=== PATIENT | female | born 1930 | race Caucasian/White ===

== ENCOUNTER 2017-04-25 14:09 | Emergency (ER) | payer MEDICARE ==
[2017-04-25] MEDS ORDERED: Piperacillin/Tazobactam 2.25 GM VIAL ONE (14:46)
[2017-04-25] MEDS ORDERED: Sodium Chloride 0.9% 100 ML ONE (14:47)
[2017-04-25 15:22] LABS: #Basophils 0.2 thou/uL (0.0-0.2); #Eosinphils 0.3 thou/uL (0.0-0.7); #Lymphocytes 2.6 thou/uL (1.20-3.40); #Monocytes 0.7 thou/uL (0.11-0.59); #Neutrophils 4.2 thou/uL (1.40-6.50); %Basophils 2.5 % (0.0-1.0); %Eosinophils 3.9 % (0.0-10.0); %Monocytes 8.4 % (0.0-10.0); Anisocytosis MODERATE=16-30 cells (100X) (0-5/hpf); Elliptocytes SLIGHT = 2-5 cells (100X) (0-1/hpf); Hematocrit 24.8 % (36.0-47.0); Howell Jolly Bodies SLIGHT = 1-2 cells (100X) (None Seen); Hypochromia SLIGHT = 6-15 cells (100X) (0-5/hpf); Macrocytosis SLIGHT = 6-15 cells (100X) (0-5/hpf); Mean Platelet Volume 8.9 fL (7.4-10.4); Microcytosis SLIGHT = 6-15 cells (100X) (0-5/hpf); Red Blood Cell (RBC) Count 2.55 mill/uL (4.20-5.40); Target Cells SLIGHT = 2-5 cells (100X) (0-1/hpf); Tear Drops SLIGHT = 2-5 cells (100X) (0-1/hpf)
--- NOTE | 2017-04-25 15:32 | RAD ---
THREE VIEWS RIGHT FOOT: Date: 04-25-17 History: Right second toe infection. Hammer toes, bilateral feet. FINDINGS: There is an avulsion fracture seen at the medial aspect base of the proximal phalanx middle toe, exac t age indeterminate, and on the oblique views appears to be corticated. This may represent a more rem ote avulsion injury. There is osteoarthritis involving the interphalangeal joints as well as the firs t metatarsal phalangeal joint. There is a questionable lucency within the distal cortex of the middle phalanx of the second toe and a subtle nondisplaced fracture cannot be entirely excluded. This may b e artifactual. Posterior and plantar calcaneal enthesophytes are present. No osseous destruction is i dentified. Lisfranc joint is normally aligned. Prominent vascular calcifications are present. IMPRESSION: 1. Scattered osteoarthritis involving the forefoot and to a lesser extent the midfoot. 2. Remote fracture base of the proximal phalanx middle toe. 3. Questionable fracture involving the middle phalanx of the second toe. 4. Subcutaneous soft tissue swelling of the second toe but no osseous destruction is appreciated. Toe s are held in flexion limiting evaluation. POS: [facility]
[2017-04-25 15:43] LABS: ALT (SGPT) 20 U/L (8-55); AST (SGOT) 39 U/L (5-34); Alkaline Phosphatase 78 U/L (40-150); Anion Gap 18 mmol/L (10-20); BUN (Urea Nitrogen) 29 mg/dL (9.8-20.1); Bilirubin, Total 0.2 mg/dL (0.2-1.2); Calc. Creatinine Clearance 0 mL/min (70-130); Calcium 9.6 mg/dL (7.8-10.44); Carbon Dioxide 21 mmol/L (23-31); Chloride 108 mmol/L (98-107); Estimated GFR-MDRD 50; Protein, Total 9.4 g/dL (6.0-8.3)
[2017-04-25 16:01] LABS: Lactic Acid - Sepsis 2.5 mmol/L (0.5-2.2)
[2017-04-25] MEDS ORDERED: Acetaminophen/Codeine 30-300mg Tablet ONE (17:01)
== END 2017-04-25 18:21 | disposition home or self-care (01) ==
LOC: SCSER 14:09
DX: L03.031 Cellulitis of right toe (principal); I10 Essential (primary) hypertension; D64.9 Anemia, unspecified; R73.03 Prediabetes; G30.9 Alzheimer's disease, unspecified; F02.80 Dementia in other diseases classified elsewhere, unspecified severity, without behavioral disturbance, psychotic disturbance, mood disturbance, and anxiety; Z79.84 Long term (current) use of oral hypoglycemic drugs; Z79.899 Other long term (current) drug therapy
CPT/HCPCS: 36415; 80053; 83605; 85025; 87040; 87070; 87077; 87186; 87205; 96365; 96367; J2543; J7050

== ENCOUNTER 2017-05-09 13:42 | Observation (INO) | payer MEDICARE ==
[2017-05-09 14:19] LABS: Hematocrit 28.6 % (36.0-47.0); Mean Platelet Volume 10.6 fL (7.4-10.4); Red Blood Cell (RBC) Count 2.85 mill/uL (4.20-5.40); White Blood Cell (WBC) Count 6.9 thou/uL (4.8-10.8)
[2017-05-09 14:43] LABS: Anisocytosis SLIGHT = 6-15 cells (100X) (0-5/hpf); Hypochromia SLIGHT = 6-15 cells (100X) (0-5/hpf); Neutrophil 71 % (42-75); Ovalocytes SLIGHT = 2-5 cells (100X) (0-1/hpf); Target Cells SLIGHT = 2-5 cells (100X) (0-1/hpf); Tear Drops SLIGHT = 2-5 cells (100X) (0-1/hpf)
[2017-05-09 14:48] LABS: Troponin I 0.013 ng/mL (< 0.028)
[2017-05-09 14:54] LABS: ALT (SGPT) 14 U/L (8-55); AST (SGOT) 24 U/L (5-34); Alkaline Phosphatase 64 U/L (40-150); Anion Gap 16 mmol/L (10-20); BUN (Urea Nitrogen) 39 mg/dL (9.8-20.1); Bilirubin, Total 0.3 mg/dL (0.2-1.2); Calc. Creatinine Clearance 0 mL/min (70-130); Calcium 9.8 mg/dL (7.8-10.44); Carbon Dioxide 16 mmol/L (23-31); Chloride 108 mmol/L (98-107); Estimated GFR-MDRD 40; Protein, Total 9.4 g/dL (6.0-8.3)
--- NOTE | 2017-05-09 15:07 | CT ---
CT HEAD WITHOUT IV CONTRAST: Date: 05/09/17 HISTORY: Altered mental status. Increased generalized weakness and fatigue. COMPARISON: 06/16/12. FINDINGS: Again noted is diminished attenuation of periventricular white matter, likely reflective of chronic s mall vessel ischemic changes which do appear slightly progressed when compared to the prior exam. The re is no evidence of an acute cortical infarction, hemorrhage, mass effect, or midline shift. Diffuse mild cerebral volume loss is again present. Ventricular system is normal in size, shape, and positio n for the degree of sulcal atrophy. There is a small low density focus seen in the left cerebellar hemisphere likely related to remote in farction. Visualized paranasal sinuses and mastoid air cells are clear. Opacification of the right ma xillary antrum and ethmoidal air cells noted on the prior study have resolved. IMPRESSION: 1. No acute intracranial abnormality is demonstrated. 2. Chronic small vessel ischemic changes with cerebral volume loss. 3. Remote infarction left cerebellar hemisphere. POS: [facility]
--- NOTE | 2017-05-09 15:12 | RAD ---
SINGLE VIEW OF CHEST: Date: 05/09/17 COMPARISON: 06/08/16. HISTORY: Syncope. FINDINGS: Single view of the chest shows an enlarged but stable cardiomediastinal silhouette with atherosclerot ic calcifications in the aorta. There are bilateral veil-like opacities which may represent layering pleural effusions. Degenerative changes are seen in the spine. IMPRESSION: Cardiomegaly with possible small bilateral pleural effusions. POS: [facility]
[2017-05-09 16:45] LABS: Bilirubin Negative (Negative); Blood, Urine Negative (Negative); Glucose, Urine (Dipstick) Negative (Negative); Ketone, Urine Negative (Negative); Nitrite Negative (Negative); Protein, Urine (Dipstick) Negative (Neg-Trace); Urobilinogen 0.2 mg/dL (0.2-1.0)
[2017-05-09 17:39] LABS: Troponin I Less than 0.010 ng/mL (< 0.028)
[2017-05-09] MEDS ORDERED: Acetaminophen 325 MG TAB PO PRN (18:39)
[2017-05-09] MEDS ORDERED: Sodium Chloride 0.9% 1,000 ML IV SCH ×2 (18:39→20:00)
[2017-05-09] MEDS ORDERED: Ondansetron ODT 4 MG TAB SL PRN (18:39)
[2017-05-09] MEDS ORDERED: Ondansetron HCl/PF 4 MG/2 ML Vial IVP PRN ×2 (18:39→19:58)
[2017-05-09] MEDS ORDERED: Ondansetron ODT 4 MG TAB PO PRN (19:58)
[2017-05-09] MEDS ORDERED: Acetaminophen 500 MG TAB PO PRN (19:58)
[2017-05-09] MEDS ORDERED: HumaLOG 300 UNITS/3 ML VIAL SC PRN ×2 (19:58)
[2017-05-09] MEDS ORDERED: Dextrose 5% in Water 1,000 ML IV PRN (19:58)
[2017-05-09] MEDS ORDERED: cloNIDine 0.1 MG TAB PO PRN (19:58)
[2017-05-09] MEDS ORDERED: hydrALAZINE 20 MG/ML VIAL SLOW IVP PRN (19:58)
[2017-05-09] MEDS ORDERED: Dextrose 50% Abboject 50 ML SYRINGE SLOW IVP PRN (19:58)
[2017-05-09] MEDS ORDERED: Sodium Chloride 0.9% 10 ML ONE (21:15)
--- NOTE | 2017-05-10 03:20 | HP ---
DATE OF ADMISSION: 05/09/2017 PRIMARY CARE PROVIDER: Dr. Cain. CHIEF COMPLAINT: Passing out. HISTORY OF PRESENT ILLNESS: This is an 86-year-old female who presents to [facility] accompanied by multiple family members and a daughter who provides the entire histo ry, as patient has severe dementia and unable to coherently carry on a conversation. According to th e daughter, patient was giving her mother a bath at home while patient was seated on a shower bench. The patient apparently slumped over "needle like" and apparently was unresponsive to voice or tactil e stimulation. The daughter reports the patient with limp for approximately 5 minutes, at which poin t, EMS was notified. The patient apparently had regained normal consciousness and was acting normall y by EMS arrival. The patient has had multiple evaluations and ER evaluations for altered mentation, general weakness, and similar type complaints in the past. Patient apparently had not been unrespon sive for this length of time according to the daughter. No specific change to her chronic medication regimen, however, has been treated with an antibiotic for suspected toe infection over the last week and a half including ciprofloxacin and Bactrim. The patient has had no specific vaccine exposure, t ravel history, or sick contacts. Patient requires assistance with all activities of daily living inc luding bathing, feeding, transfers, and self-care. Patient has severe dementia as stated previously living with her family and daughters. No specific history of recent fall, facial asymmetry or unilat eral weakness. No nausea, vomiting, or diarrhea noted. In the emergency room, the patient underwent general evaluation including CT imaging of the brain showing no acute intracranial process. Chronic ischemic white matter changes noted. Remote infarction of the left cerebellar hemisphere noted. [facility] metabolic survey showed evidence of chronic anemia as well as questionable acute kidney injur y in the context of known chronic kidney disease, stage 3. [facility]. PAST MEDICAL HISTORY: 1. Diabetes mellitus, type 2. 2. Hypertension. 3. History of general weakness and altered mental status. 4. Advanced Alzheimer dementia. 5. History of basal-cell carcinoma of the skin. 6. History of hammertoes, bilateral feet. 7. Deconditioning. PAST SURGICAL HISTORY: 1. Status post basal cell skin excision. 2. Status post left thyroid lobectomy in 2009. 3. Status post left knee repair. 4. Status post hysterectomy. 5. Status post bilateral hammertoe correction. CURRENT MEDICATIONS: 1. Amitriptyline 25 mg 1 tab p.o. daily. 2. Donepezil 10 mg 1 tab p.o. daily. 3. Memantine 10 mg p.o. b.i.d. 4. Naproxen 500 mg 1 tab p.o. b.i.d. 5. Losartan 100 mg 1 tab p.o. b.i.d. 6. Vitamin B6 of 100 mg p.o. daily. ALLERGIES: No known drug allergies. FAMILY HISTORY: Positive for hypertension. SOCIAL HISTORY: Patient resides with her daughter in [place], [place]. No current alcohol, tobacco, or illicit drug use. Requires assistance with all activities of daily living. Rolling walker for am bulation with standby assistance. REVIEW OF SYSTEMS: The following complete review of systems was otherwise negative, except as stated per HPI: Constitutional: Weight loss or gain, ability to conduct usual activities. Skin: Rash, itching. Eyes: Double vision, pain. ENT/Mouth: Nose bleeding, neck stiffness, pain, tenderness. Cardiovascular: Palpitations, dyspnea on exertion, orthopnea. Respiratory: Shortness of breath, wheezing, cough, hemoptysis, fever, or night sweats. Gastrointestinal: Poor appetite, abdominal pain, heartburn, nausea, vomiting, constipation, or diarr hea. Genitourinary: Urgency, frequency, dysuria, nocturia. Musculoskeletal: Pain, swelling. Neurologic/Psychiatric: Anxiety, depression. Allergy/Immunologic: Skin rash, bleeding tendency. PHYSICAL EXAMINATION: VITAL SIGNS: On admission blood pressure 145/62, pulse 77, respiratory rate 20, temperature is 98 de grees Fahrenheit, O2 saturation 99% on room air. GENERAL APPEARANCE: This is an 86-year-old female, alert and oriented x1 to person, sittin g on a bedside commode. HEENT: Pupils are equal, round, and reactive to light and accommodation. Extraocular muscles are in tact. No scleral icterus, no conjunctival injection. Nares patent. OP is clear. Oral mucosa dry a ppearing. NECK: Supple, no cervical adenopathy, no thyromegaly, no carotid bruits, no JVD appreciated. Cervic al spine with full active and passive range of motion. No meningeal signs appreciated. CHEST: Lungs are clear to auscultation bilaterally. CARDIOVASCULAR: S1, S2, without noted murmur. ABDOMEN: Rounded, soft, nontender, nondistended. Bowel sounds are positive in all four quadrants. No hepatosplenomegaly, no abdominal bruits, no rebound or guarding appreciated. EXTREMITIES: Warm and dry with fair turgor. No clubbing, cyanosis, or asymmetric edema appreciated. Pulses palpable distally at the dorsalis pedis, posterior tibial, and popliteal arteries bilaterall y. Capillary refill less than 2 seconds. Right foot with second toe consistent with hammer toe with dry crusting area at the distal phalanx. Mild erythema of the toe. No drainage noted. Chronic juliocesar earing. NEUROLOGIC: Cranial nerves II-XII are grossly intact. Alert and oriented x1 to person. Patient not observed ambulatory. PERTINENT LABORATORY AND X-RAY FINDINGS: Sodium 135, potassium 4.8, chloride 108, CO2 of 16, BUN 39, creatinine 1.27, estimated GFR of 40, glucose 137, calcium is 9.8. LFTs within normal limits. Trop onin I negative x2. Albumin 3.4. CBC showed a white blood cell count of 6.9, hemoglobin 8.9, hemato crit 29, MCV 100, platelet count 254 with 71% neutrophils. Urinalysis negative. Urine specific grav ity is 1.021. CT of the brain without contrast dated 05/09/2017 showed chronic ischemic white matter changes. Remote infarct in the left cerebellar hemisphere. No acute process identified. Portable chest x-ray shows cardiomegaly without acute infiltrate. EKG dated 05/09/2017 by my interpretation s hows a sinus mechanism with heart rate in the 80s. Normal R-wave progression noted in the precordial leads. Normal axis. ST changes noted in leads V4 through V6. ASSESSMENT AND PLAN: 1. Syncope. Etiology unclear. Questionable volume depletion. Continue intravenous normal saline a t 75 mL per hour. We will check orthostatic vital signs q.3 hours x2. Check carotid Doppler study t o rule out focal stenosis. Check 2D transthoracic echocardiogram to assess ejection fraction and denisse vular function. Continue telemetry monitoring to rule out acute arrhythmia. 2. Acute kidney injury on chronic kidney disease, stage 3. Continue intravenous normal saline as st ated previously. Avoid nephrotoxic agents and contrast media. Repeat creatinine in the a.m. 3. Metabolic acidosis. Questionable acute/subacute. Continue intravenous fluids as outlined previo usly. Repeat CO2 level in the a.m. 4. Chronic macrocytic anemia. No current evidence to suggest acute blood loss. Repeat CBC in the a .m. Review of the medical records shows anemia with similar values dating to 2012. 5. Advanced dementia, Alzheimer's type. Continue supportive measures. Family to attend patient jourdan pyle in the hospital. Continue memantine 10 mg p.o. b.i.d. 6. Prophylaxis. Sequential compression devices while in bed. Pepcid 20 mg p.o. b.i.d. General fal l precautions. 7. Code status is FULL. Surrogate medical decision maker is patient's daughter.
[2017-05-10 06:46] LABS: Anion Gap 14 mmol/L (10-20); BUN (Urea Nitrogen) 39 mg/dL (9.8-20.1); Calc. Creatinine Clearance 38 mL/min (70-130); Carbon Dioxide 18 mmol/L (23-31); Chloride 111 mmol/L (98-107); Estimated GFR-MDRD 47
[2017-05-10 07:02] LABS: Hematocrit 24.5 % (36.0-47.0); Mean Platelet Volume 11.1 fL (7.4-10.4); White Blood Cell (WBC) Count 6.4 thou/uL (4.8-10.8)
[2017-05-10] MEDS ORDERED: Famotidine 20 MG TAB PO SCH (09:00)
--- NOTE | 2017-05-10 09:07 | ULT ---
CAROTID DUPLEX ULTRASOUND: INDICATION: Syncope. COMPARISON: None. FINDINGS: There is prominent calcified atherosclerotic plaque involving the proximal right internal carotid art tirso. There is mild partially calcified atherosclerotic plaque involving the distal left common carot id artery. Peak systolic velocity right CCA was 83.6 cm/s and the left CCA was 70.9 cm/s. The peak systolic velocity within the right ICA was 78.9 cm/s and the left was 9.2 cm/s. Right IC:CC ratio is 0.94 and the left is 1.27. Antegrade flow is seen within both vertebral arteries. IMPRESSION: 1. Moderate partially calcified atherosclerotic plaque involving the proximal right internal carotid artery without evidence of hemodynamically significant stenosis. 2. No evidence of hemodynamically significant stenosis involving the left internal carotid artery. 3. Antegrade flow within both vertebral arteries. POS: [facility]
[2017-05-10 09:34] LABS: Band 7 % (5-11); Hypochromia SLIGHT = 6-15 cells (100X) (0-5/hpf); Neutrophil 32 % (42-75); Polychromasia SLIGHT = 2-3 cells (100X) (0-2/hpf)
[2017-05-10 10:48] VITALS: BP 148/67; TEMP 97.6
[2017-05-10 11:03] VITALS: BMI 23.1
--- NOTE | 2017-05-10 13:16 | DIS ---
DATE OF ADMISSION: 05/09/2017 DATE OF DISCHARGE: 05/10/2017 DISCHARGE DIAGNOSES: 1. Status post syncopal episode likely secondary to dehydration. 2. Dehydration, improved. 3. Acute kidney injury on chronic kidney disease stage 3. 4. Chronic normocytic anemia, stable. 5. Hypertension. 6. Alzheimer's dementia, advanced. CONSULTATIONS: None. PERTINENT LABORATORY DATA AND X-RAY FINDINGS: Creatinine ranged between 1.09-1.27, estimated GFR ran ging between 40-47. LFTs within normal limits. Troponin I negative x2. Albumin 3.4. CBC showed a hemoglobin ranging between 7.7-8.9. Urinalysis negative 05/09/2017. CT of the brain without contras t dated 05/09/2017 showed no acute intracranial process. Chronic ischemic small vessel changes noted . Portable chest x-ray dated 05/09/2017 showed cardiomegaly without acute process. Carotid Doppler study dated 05/10/2017 showed moderate atherosclerotic plaque in the right internal carotid artery wi thout hemodynamically significant stenosis. A 2D transthoracic echocardiogram 05/10/2017 pending at the time of this dictation. HOSPITAL COURSE: Patient was observed on the telemetry unit after initially presenting status post s yncopal episode. The patient underwent general assessment including orthostatic vital signs showing no evidence of acute orthostasis. Due to patient's instability with gait and Alzheimer dementia obta ining accurate orthostatic vital signs was limited. The patient was noted with mild acute kidney inj ury in the context of known chronic kidney disease stage 3, receiving IV fluids throughout her hospit al course. Likely multifactorial process including decreased p.o. intake as well as iatrogenic influ ence with the ongoing use of losartan and naproxen. Current recommendations are to discontinue the n aproxen and increased free water intake. Overall, the patient remained clinically stable throughout the hospital course with telemetry monitoring showing sinus mechanism with occasional sinus arrhythmi a with occasional premature atrial contractions. Overall, patient is clinically stable and at [facility] functional status ready for discharge 05/10/2017. DISCHARGE MEDICATIONS: 1. Amitriptyline 25 mg p.o. at bedtime. 2. Ciprofloxacin 375 mg p.o. b.i.d. 3. Aricept 10 mg p.o. at bedtime. 4. Losartan 100 mg p.o. at bedtime. 5. Namenda 10 mg p.o. b.i.d. 6. Vitamin B6 100 mg p.o. daily. FOLLOWUP: Patient will follow up with her primary care provider, Dr. Cain within 7 days of discha rge. CONDITION ON DISCHARGE: Stable. ACTIVITY: Ad martínez. Rolling walker with standby assistance and fall risk precautions. DIET: Regular. CODE STATUS: FULL. DISPOSITION: Home, 05/10/2017.
== END 2017-05-10 16:10 | disposition home or self-care (01) ==
LOC: ERS 13:42 → ERHOLD 15:11 → 2NO 18:29
PROVIDERS: ADMIT Family Medicine; ATTEND Family Medicine
DX: R55 Syncope and collapse (principal); E86.0 Dehydration; E11.22 Type 2 diabetes mellitus with diabetic chronic kidney disease; I12.9 Hypertensive chronic kidney disease with stage 1 through stage 4 chronic kidney disease, or unspecified chronic kidney disease; N18.3 Chronic kidney disease, stage 3 (moderate); N17.9 Acute kidney failure, unspecified; D64.9 Anemia, unspecified; G30.9 Alzheimer's disease, unspecified; F02.80 Dementia in other diseases classified elsewhere, unspecified severity, without behavioral disturbance, psychotic disturbance, mood disturbance, and anxiety; R26.9 Unspecified abnormalities of gait and mobility; R53.81 Other malaise; E87.2 Acidosis; Z79.2 Long term (current) use of antibiotics; Z79.899 Other long term (current) drug therapy; Z88.5 Allergy status to narcotic agent; Z90.710 Acquired absence of both cervix and uterus; Z90.89 Acquired absence of other organs; Z98.890 Other specified postprocedural states
CPT/HCPCS: 70450; 71010; 80048; 80053; 81003; 82553; 82962 ×2; 84484 ×2; 85007; 85025; 85027; 93005; 93880; 96360; 96361; 97139; 99285; G0378; 36415; 36416; A4216

== ENCOUNTER 2017-08-29 17:35 | Inpatient (IN) | payer MEDICARE ==
[2017-08-29 18:37] LABS: #Basophils 0.2 thou/uL (0.0-0.2); #Eosinphils 0.2 thou/uL (0.0-0.7); #Lymphocytes 3.2 thou/uL (1.20-3.40); #Monocytes 0.8 thou/uL (0.11-0.59); #Neutrophils 5.5 thou/uL (1.40-6.50); %Basophils 1.7 % (0.0-1.0); %Eosinophils 1.8 % (0.0-10.0); %Lymphocytes 32.1 % (21.0-51.0); %Monocytes 8.4 % (0.0-10.0); Anisocytosis MODERATE=16-30 cells (100X) (0-5/hpf); Elliptocytes SLIGHT = 2-5 cells (100X) (0-1/hpf); Hemoglobin 6.5 g/dL (12.0-16.0); Hypochromia SLIGHT = 6-15 cells (100X) (0-5/hpf); MDiff Complete? YES; Mean Corpuscular HGB CONC 30.8 g/dL (32.0-36.0); Mean Corpuscular Hemoglobin 28.6 pg (27.0-31.0); Mean Corpuscular Volume 92.8 fl (81.0-99.0); Mean Platelet Volume 9.8 fL (7.4-10.4); PLT Morphology Comment Appears Adequate; Platelet Count 211 thou/uL (130-400); RBC Distribution Width 25.2 % (11.5-14.5); Red Blood Cell (RBC) Count 2.29 mill/uL (4.20-5.40); Target Cells SLIGHT = 2-5 cells (100X) (0-1/hpf); White Blood Cell (WBC) Count 9.9 thou/uL (4.8-10.8)
[2017-08-29] MEDS ORDERED: Clindamycin/D5W 900 mg/50 ml Premix Bag ONE (18:53)
[2017-08-29 19:24] LABS: Anion Gap 18 mmol/L (10-20); BUN (Urea Nitrogen) 30 mg/dL (9.8-20.1); Calc. Creatinine Clearance 0 mL/min (70-130); Calcium 9.4 mg/dL (7.8-10.44); Carbon Dioxide 23 mmol/L (23-31); Chloride 103 mmol/L (98-107); Estimated GFR-MDRD 36; Glucose 168 mg/dL (83-110); Potassium 4.6 mmol/L (3.5-5.1); Sodium 139 mmol/L (136-145)
--- NOTE | 2017-08-29 19:58 | RAD ---
LEFT FOOT THREE VIEWS: HISTORY: An 86-year-old female with a history of pain. History of poor circulation in the extremities, needin g stents, COMPARISON: 07/21/2008 FINDINGS: There is some artifact within the material overlying the midfoot and hindfoot. There is significant motion artifact. There is prominent vascular calcification. No overt acute fracture. Old deformity of the distal fifth metatarsal. IMPRESSION: Suboptimal examination because of overlying artifact and motion artifact. No overt acute process. POS: [facility]
--- NOTE | 2017-08-29 20:02 | RAD ---
RIGHT FOOT THREE VIEWS: HISTORY: An 86-year-old female with a history of right foot pain. FINDINGS: There is artifact overlying the hindfoot and ankle. Significant degenerative changes and vascular ca lcifications. Probable skin ulcer in the medial soft tissues, medial to the first metatarsophalangea l joint. IMPRESSION: Motion artifact. Artifact and material overlying the hindfoot and ankle. Probable medial skin ulcer or defect at the level of the first metatarsophalangeal joint. No fracture or dislocation in the me dial soft tissues, adjacent to the medial aspect of the first metatarsophalangeal joint. POS: [facility]
[2017-08-29 21:37] VITALS: BMI 24.2
[2017-08-29] MEDS ORDERED: Amitriptyline HCl 25 MG TAB PO SCH (23:45)
[2017-08-29] MEDS ORDERED: Losartan 25 MG TAB PO SCH (23:45)
[2017-08-29] MEDS ORDERED: Donepezil HCl 10 MG TAB PO SCH (23:45)
[2017-08-29] MEDS ORDERED: Ascorbic Acid 500 mg Chewable Tablet PO SCH (23:45)
[2017-08-30] MEDS ORDERED: Clindamycin/D5W 900 MG in Premix Bag 1 BAG IVPB SCH (02:00)
[2017-08-30] MEDS ORDERED: Ondansetron ODT 4 MG TAB PO PRN (04:10)
[2017-08-30] MEDS ORDERED: Ondansetron HCl/PF 4 MG/2 ML Vial IVP PRN (04:10)
[2017-08-30] MEDS ORDERED: Acetaminophen 325 MG TAB PO PRN (04:10)
[2017-08-30] MEDS ORDERED: Dextrose 50% Abboject 50 ML SYRINGE SLOW IVP PRN (04:10)
[2017-08-30] MEDS ORDERED: HYDROcodone/Acetaminophen 5/325 mg Tablet PO PRN (04:10)
[2017-08-30] MEDS ORDERED: Dextrose 5% in Water 1,000 ML IV PRN (04:10)
--- NOTE | 2017-08-30 05:07 | HP ---
DATE OF ADMISSION: 08/30/2017 TIME OF SERVICE: 0315 CHIEF COMPLAINT: Pain and bilateral foot wounds. HISTORY OF PRESENT ILLNESS: Ms. Clancy is an 86-year-old white female with a history of Alzheimer' s type dementia, fairly advanced, peripheral vascular disease, borderline diabetes and hypertension. The patient lives at home with her daughter. She has had multiple areas on both of her feet of chron ic appearing arterial insufficiency ulcers with chronic open wounds. [facility] She saw Dr. Kwan a week or two ago over at the [facility] and he is supposed to see them next Tuesday for peripheral vascular disease arteriography and stenting. The patient has a history of Alzheimer's, unable to contribute to the history. She has been getting wound care for some time, but when nurses were working on her right foot, the patient withdrew in robby n which she does not normally do. There was some increased redness and swelling with increased heat to the bilateral feet and so they brought her to the emergency department for evaluation. Of note, she was [facility] the [facility]. She was put on antibiotics with Keflex a couple of weeks ago for a 7-day course, but did not seem to really make a difference. The patient has not had any fevers here. No nausea, vomiting, no diarrhea or constipation. She is n ot complaining herself, but more based on how she responds to stimuli. In the emergency department, she was seen in [facility]. Labs were obtained. She was giv en clindamycin and sent here for further workup and evaluation. She was initially accepted by Dr. Shauna morris during swing shift and it was left to me to admit. She has been sleeping well. No other complaints. No events since arrival. PAST MEDICAL HISTORY: 1. Alzheimer's type dementia. 2. Borderline diabetes. 3. Hypertension. 4. Peripheral vascular disease. 5. Chronic bilateral foot ulcers, ischemic. PAST SURGICAL HISTORY: 1. Left knee replacement. 2. Skin cancer removed from her nose. 3. Bilateral foot hammertoe correction. 4. Hysterectomy, ovary status unknown. HOME MEDICATIONS: 1. Donepezil 10 mg p.o. at bedtime. 2. Losartan 100 mg p.o. daily 3. Metformin 500 mg p.o. b.i.d. 4. Amitriptyline 25 mg p.o. at bedtime. 5. Namenda 10 mg p.o. b.i.d. 6. Slow iron 447.5 mg daily. 7. Folic acid daily. 8. B12 daily. 9. Aspirin 81 mg daily. 10. Calcium 500 mg plus D daily. 11. Centrum Silver 1 tablet daily. 12. B6 100 mcg daily. ALLERGIES: TRAMADOL makes her goofy. FAMILY HISTORY: Negative for clotting or bleed disorder, no immune dysfunction known. SOCIAL HISTORY: Negative for habits x3. She lives at home with her daughter who cares for her prima marcelle. REVIEW OF SYSTEMS: A 10 point review of systems is not obtainable due to patient's advanced dementia . CODE STATUS: I discussed code status with the daughter and she is not sure what decision she wants t o make at this time. PHYSICAL EXAMINATION: VITAL SIGNS: Temperature is 97.5, pulse 100, blood pressure 174/84, respiratory 18, O2 sat 96% on ro om air. GENERAL: She is sleeping, but arousable. She mumbles incoherently and does not attempt to answer qu estions. She does not really follow directions. She looks to be in no acute distress. HEENT: Normocephalic, atraumatic. Pupils equal, round, reactive to light bilaterally, mucous membra umm are moist. She has no visible lesions. No thrush. NECK: Supple, without lymphadenopathy, JVD, or thyromegaly. She has normal carotid upstrokes. I do not appreciate bruits. LUNGS: Clear with good air movement. She has no wheezes, no rales, no rhonchi. CARDIOVASCULAR: She has a normal S1, S2. She has a regular rhythm and tachycardic. She has no callie ble murmurs. ABDOMEN: Soft, is nontender, nondistended. She has good bowel sounds in all 4 quadrants. There is no involuntary guarding or rebound. EXTREMITIES: No cyanosis, no clubbing. She has got no edema. She has got multiple ulcerations with a sharp demarcation and tissue loss present with bilateral feet. There is increased erythema around the right foot wounds and a softer digit of the right fourth toe. There is slight increased heat and a rapid capillary refill. There is slight edema distally. SKIN: Otherwise, warm, moist and well perfused. NEUROLOGIC: Not testable. She does move all 4 extremities and withdraws to painful stimuli. Crania l nerves appear to be intact. MUSCULOSKELETAL: Otherwise shows large joint to be uninflamed. She does have decent range of motion . There is no palpable effusions. LABORATORY DATA: Sodium 139, potassium 4.6, chloride 103, bicarb 23, BUN 30 and creatinine 1.37, glu cose 168, calcium 9.4. C-reactive protein was at 5.04 and sed rate was not done. CBC showed a white count of 9.9, hemoglobin is 6.5, hematocrit of 21.2 and platelet count of 211,000. Of note, her last hemoglobin in our system done on 08/03/2017 showed hemoglobin 7.6, on 07/27/2017 it was 7.8. She has been hovering in the mid 8s up to 8.9 on 05/09/2017, and down in the 7, now 6. She does have a normal MCV at 92.8 and does have a normal MCH of 28.6 with a slightly low, MCHC at 30 .8 very high RDW 25.2%. RADIOGRAPHIC STUDIES: She had bilateral foot x-ray done on 08/29/2017 that shows some soft tissue sw elling and some tissue loss over the ulcerations. There is no fracture or dislocation. There is no air in the tissues. ASSESSMENT AND PLAN: 1. Ischemic ulcer of the bilateral feet. 2. Peripheral vascular disease. 3. Advanced Alzheimer's type dementia. 4. Borderline diabetes, hyperglycemia. 5. Essential hypertension. 6. "Prediabetes", but on metformin. We will start her on Ancef 2 grams IVq,8 hours and will adjust the dose for her kidney function. At this point, she does appear to have some chronic kidney disease stage 3. I think that likely she nee ds to remain on antibiotics prophylactically until she has her procedure. She is not septic, but messina s have increased discomfort. There is nothing surgically to do as she does not have the blood flow t o correct this. She has already had initial evaluation and plans for intervention by Dr. Ede Kwan to be done next Tuesday and I think at this point would focus on pain control, continuing prophylact ic antibiotics and getting her to appointment. If she remains stable and her blood counts remain stable, I think later she will be discharged today. Anemia of chronic disease, likely some degree of iron deficiency. She already had a unit of blood si nce she has been here. We will recheck her counts now. We will transfuse to keep her above 8 for goncalves re. This will enhance oxygen delivery to her tissues, especially with severe PVD. We cannot check a n iron level at this point, she just had a unit of blood. We will continue Slow-iron daily. May wan t to consider increasing to twice a day.
[2017-08-30] MEDS: Sodium Chloride 0.9% 1,000 ML IV SCH ×3 (05:41→23:30)
[2017-08-30] MEDS: CEFAZOLIN/Water 2 GM/20 ML SYRINGE SLOW IVP SCH ×3 (05:43→20:37)
[2017-08-30 05:59] LABS: Anion Gap 13 mmol/L (10-20); BUN (Urea Nitrogen) 26 mg/dL (9.8-20.1); Calc. Creatinine Clearance 37 mL/min (70-130); Calcium 9.2 mg/dL (7.8-10.44); Carbon Dioxide 24 mmol/L (23-31); Chloride 104 mmol/L (98-107); Estimated GFR-MDRD 44; Glucose 108 mg/dL (83-110); Potassium 4.3 mmol/L (3.5-5.1); Sodium 137 mmol/L (136-145)
[2017-08-30 06:43] LABS: Band 8 % (5-11); Eosinophils 2 % (0-10); Hemoglobin 8.4 g/dL (12.0-16.0); Lymphocytes 29 % (21-51); MDiff Complete? YES; Mean Corpuscular HGB CONC 32.1 g/dL (32.0-36.0); Mean Corpuscular Hemoglobin 30.9 pg (27.0-31.0); Mean Corpuscular Volume 96.2 fl (81.0-99.0); Mean Platelet Volume 10.9 fL (7.4-10.4); Monocytes 7 % (0-10); Neutrophil 54 % (42-75); Platelet Count 211 thou/uL (130-400); RBC Distribution Width 24.2 % (11.5-14.5); Red Blood Cell (RBC) Count 2.72 mill/uL (4.20-5.40); White Blood Cell (WBC) Count 8.1 thou/uL (4.8-10.8)
[2017-08-30] MEDS: Acetaminophen 500 MG TAB PO SCH ×2 (08:26→20:37)
[2017-08-30] MEDS: metFORMIN XR 500 MG TAB PO SCH (08:27)
[2017-08-30] MEDS: Famotidine 20 MG TAB PO SCH (09:09)
[2017-08-30] MEDS: HumaLOG 300 UNITS/3 ML VIAL SC PRN (17:49)
[2017-08-30] MEDS ORDERED: Losartan 25 MG TAB PO SCH (21:00)
[2017-08-30] MEDS ORDERED: Donepezil HCl 10 MG TAB PO SCH (21:00)
[2017-08-30] MEDS ORDERED: Amitriptyline HCl 25 MG TAB PO SCH (21:00)
[2017-08-30] MEDS ORDERED: Ascorbic Acid 500 mg Chewable Tablet PO SCH (21:00)
[2017-08-31] MEDS: CEFAZOLIN/Water 2 GM/20 ML SYRINGE SLOW IVP SCH ×2 (04:26→12:55)
[2017-08-31 05:03] LABS: Anion Gap 15 mmol/L (10-20); BUN (Urea Nitrogen) 21 mg/dL (9.8-20.1); Calc. Creatinine Clearance 33 mL/min (70-130); Calcium 8.9 mg/dL (7.8-10.44); Carbon Dioxide 22 mmol/L (23-31); Chloride 105 mmol/L (98-107); Estimated GFR-MDRD 39; Glucose 171 mg/dL (83-110); Potassium 4.4 mmol/L (3.5-5.1); Sodium 138 mmol/L (136-145)
[2017-08-31 05:20] LABS: Band 7 % (5-11); Eosinophils 2 % (0-10); Hemoglobin 8.4 g/dL (12.0-16.0); Lymphocytes 13 % (21-51); MDiff Complete? YES; Mean Corpuscular Hemoglobin 30.2 pg (27.0-31.0); Mean Corpuscular Volume 94.1 fl (81.0-99.0); Mean Platelet Volume 10.2 fL (7.4-10.4); Monocytes 4 % (0-10); Neutrophil 74 % (42-75); Platelet Count 215 thou/uL (130-400); RBC Distribution Width 23.8 % (11.5-14.5); White Blood Cell (WBC) Count 9.5 thou/uL (4.8-10.8)
[2017-08-31] MEDS: metFORMIN XR 500 MG TAB PO SCH (08:02)
[2017-08-31] MEDS: Acetaminophen 500 MG TAB PO SCH (08:02)
[2017-08-31] MEDS: Famotidine 20 MG TAB PO SCH (08:02)
[2017-08-31] MEDS ORDERED: Sodium Chloride 0.9% 500 ML IV SCH (08:30)
[2017-08-31] MEDS: Sodium Chloride 0.9% 1,000 ML IV SCH (11:14)
[2017-08-31] MEDS ORDERED: Metoprolol Tartrate 25 MG TAB PO SCH ×2 (11:15→21:00)
--- NOTE | 2017-08-31 13:29 | PDOC.PN ---
- Subjective Encounter Start Date: 08/31/17 Encounter Start Time: 13:35 Subjective: Patient less alert today and not eating breakfast -: Able to respond occasionally to commands -: No acute events overnight. - Objective MAR Reviewed: Yes Vital Signs & Weight: Vital Signs (12 hours) Temp Pulse Resp BP BP Pulse Ox 08/31/17 11:56 98.0 F 87 18 122/73 93 L 08/31/17 08:51 107 H 154/81 H 08/31/17 08:00 98.8 F 107 H 16 08/31/17 07:14 98.8 F 110 H 16 165/82 H 97 Weight Admit Weight 154 lb 8 oz Weight 154 lb 8 oz I&O: 08/30/17 08/31/17 09/01/17 06:59 06:59 06:59 Intake Total 725 4280 1000 Balance 725 4280 1000 Result Diagrams: 08/31/17 04:35 08/31/17 04:35 Additional Labs: Accuchecks 08/31/17 08/31/17 08/30/17 11:59 04:35 19:44 POC Glucose 231 H 195 H 213 H 08/30/17 16:45 POC Glucose 165 H Phys Exam - Physical Examination Constitutional: NAD HEENT: PERRLA, moist MMs, sclera anicteric Neck: no JVD, supple, full ROM Respiratory: no wheezing, no rales, no rhonchi, clear to auscultation bilateral Cardiovascular: RRR, no significant murmur, no rub Gastrointestinal: soft, non-tender, no distention, positive bowel sounds Musculoskeletal: no edema, pulses present Unable to cooperate w exam 2/2 altered senorium Skin: no rash Deviation from normal: ischemic ulcers b/l feet Dx/Plan (1) Altered sensorium Code(s): R40.4 - TRANSIENT ALTERATION OF AWARENESS Status: Acute Comment: Unclear etiology. ? hospital delirium or 2/[address] brain, CXR, blood + urine cultures, and B12, TSH ordered. (2) Type 2 diabetes mellitus with hyperglycemia Code(s): E11.65 - TYPE 2 DIABETES MELLITUS WITH HYPERGLYCEMIA Status: Acute Qualifiers: Diabetes mellitus laborer marine terminal insulin use: without laborer marine terminal use Qualified Code(s): E11.65 - Type 2 diabetes mellitus with hyperglycemia Comment: On metformin on outpatient basis. Achieving fair control. (3) Anemia of chronic disease Code(s): D63.8 - ANEMIA IN OTHER CHRONIC DISEASES CLASSIFIED ELSEWHERE Status : Chronic Comment: Iron supplementation s/p transfusion with PRBC. (4) Ischemic ulcer of both feet Code(s): L97.519 - NON-PRS CHRONIC ULCER OTH PRT RIGHT FOOT W UNSP SEVERITY; L97.529 - NON-PRESSURE CHRONIC ULCER OTH PRT LEFT FOOT W UNSP SEVERITY Status : Acute Qualifiers: Non-pressure ulcer stage: limited to breakdown of skin Qualified Code(s): L97.511 - Non-pressure chronic ulcer of other part of right foot limited to breakdown of skin; L97.521 - Non-pressure chronic ulcer of other part of left foot limited to breakdown of skin; L97.521 - Non-pressure chronic ulcer of other part of left foot limited to breakdown of skin; L97.521 - Non-pressure chronic ulcer of other part of left foot limited to breakdown of skin; L97.521 - Non-pressure chronic ulcer of other part of left foot limited to breakdown of skin Comment: Continue antibiotics, wound care. Scheduled for procedure September 06. (5) PVD (peripheral vascular disease) Code(s): I73.9 - PERIPHERAL VASCULAR DISEASE, UNSPECIFIED Status: Chronic Comment: Continue home medications. (6) Alzheimer's dementia Code(s): G30.9 - ALZHEIMER'S DISEASE, UNSPECIFIED; F02.80 - DEMENTIA IN OTH DISEASES CLASSD ELSWHR W/O BEHAVRL DISTURB Status: Chronic Qualifiers: Alzheimer's disease onset: unspecified onset Dementia behavioral disturbance: without behavioral disturbance Qualified Code(s): G30.9 - Alzheimer's disease, unspecified; F02.80 - Dementia in other diseases classified elsewhere without behavioral disturbance; F02.80 - Dementia in other diseases classified elsewhere without behavioral disturbance; F02.80 - Dementia in other diseases classified elsewhere without behavioral disturbance Comment: Delirium precautions. (7) HTN (hypertension) Code(s): I10 - ESSENTIAL (PRIMARY) HYPERTENSION Status: Acute Qualifiers: Hypertension type: essential hypertension Qualified Code(s): I10 - Essential (primary) hypertension Comment: Fair control. Continue current medications. - Plan cont current plan of care, plan discussed w/ family, continue antibiotics * . Review of Systems - Medications/Allergies Allergies/Adverse Reactions: Allergies Allergy/AdvReac Type Severity Reaction Status Date / Time tramadol Allergy Verified 08/29/17 21:08 Medications: Current Medications Acetaminophen (Tylenol) 650 mg PO Q4H PRN PRN Reason: Headache/Fever or Pain Acetaminophen (Tylenol) 500 mg PO BID [facility] Last Admin: 08/31/17 08:02 Dose: 500 mg Hydrocodone Bitart/Acetaminophen (Lucas 5/325) 1 tab PO Q4H PRN PRN Reason: Moderate Pain (4-6) Amitriptyline HCl (Elavil) 25 mg PO HS [facility] Last Admin: 08/30/17 20:37 Dose: 25 mg Ascorbic Acid (Vitamin C) 500 mg PO HS [facility] Last Admin: 08/30/17 20:38 Dose: 500 mg Aspirin (Aspirin Chewable) 81 mg PO DAILY [facility] Last Admin: 08/31/17 08:02 Dose: 81 mg Cefazolin Sodium (Ancef) 2 gm SLOW IVP 0430,1230,2030 [facility] Last Admin: 08/31/17 12:55 Dose: 2 gm Dextrose/Water (Dextrose 50%) 25 gm SLOW IVP PRN PRN PRN Reason: Hypoglycemia Donepezil HCl (Aricept) 10 mg PO [facility] Last Admin: 08/30/17 20:38 Dose: 10 mg Famotidine (Pepcid) 20 mg PO DAILY [facility] Last Admin: 08/31/17 08:02 Dose: 20 mg Glucagon (Glucagon) 1 mg IM PRN PRN PRN Reason: Hypoglycemia Dextrose/Water (D5w) 1,000 mls @ 0 mls/hr IV .Q0M PRN; As Directed PRN Reason: Hypoglycemia Insulin Human Lispro (Humalog) 0 units SC .MILD SLIDING SCALE PRN PRN Reason: Mild Correctional Scale Last Admin: 08/30/17 17:49 Dose: 2 unit Losartan Potassium (Cozaar) 100 mg PO [facility] Last Admin: 08/30/17 20:38 Dose: 100 mg Memantine (Namenda) 10 mg PO BID [facility] Last Admin: 08/31/17 08:02 Dose: 10 mg Metformin HCl (Glucophage Xr) 500 mg PO QAM-WM [facility] Last Admin: 08/31/17 08:02 Dose: 500 mg Metoprolol Tartrate (Lopressor) 12.5 mg PO DAILY [facility] Ondansetron HCl (Zofran Odt) 4 mg PO Q6H PRN PRN Reason: Nausea/Vomiting Ondansetron HCl (Zofran) 4 mg IVP Q6H PRN PRN Reason: Nausea/Vomiting Sodium Chloride (Flush - Normal Saline) 10 ml IVF Q12HR CANDICE Sodium Chloride (Flush - Normal Saline) 10 ml IVF PRN PRN PRN Reason: Saline Flush
[2017-08-31 15:31] LABS: Bilirubin Negative (Negative); Blood, Urine Negative (Negative); Clarity CLEAR (Clear); Glucose, Urine (Dipstick) Negative (Negative); Leukocyte Negative (Negative); Nitrite Negative (Negative); Protein, Urine (Dipstick) 30 mg/dL (Neg-Trace); Specific Gravity, Urine 1.015 (1.002-1.036)
[2017-08-31 15:34] LABS: Bacteria/HPF None Seen HPF (None Seen); Hyaline Casts/LPF 0-3 HYALINE CAST LPF (0-3 Hyaline); Pathc Cast-AUWi Flag 0.43 (0-2.49); RBC/HPF 0-3 HPF (0-3); Squamous Epithelial 0-3 HPF (0-3); WBC/HPF 0-3 HPF (0-3)
[2017-08-31 15:41] LABS: Vitamin B12 Greater than 2000 pg/mL (211-911)
[2017-08-31 16:55] VITALS: BP 162/77; TEMP 98.6
[2017-08-31] MEDS ORDERED: Ferrous Sulfate 325 MG TAB PO SCH (17:00)
--- NOTE | 2017-08-31 17:30 | RAD ---
PORTABLE CHEST: Date: 08/31/17 PROVIDED CLINICAL HISTORY: Evidence for aspiration. FINDINGS: Comparison with 05/09/17. Cardiac silhouette remains enlarged. Vascular calcification is noted involving the thoracic aorta. No focal consolidation, pleural fluid, or pneumothorax apparent. IMPRESSION: Cardiomegaly without evidence for an acute cardiopulmonary process. POS: [facility]
[2017-08-31] MEDS: HumaLOG 300 UNITS/3 ML VIAL SC PRN (17:43)
--- NOTE | 2017-08-31 17:56 | CT ---
NONCONTRAST CT HEAD: 08/31/17 HISTORY: Altered mental status. Lethargic. Not eating or drinking. History of Alzheimer's dementia. COMPARISON: 05/09/17. FINDINGS: Again noted is decreased attenuation of the periventricular white matter which is nonspecific but lik elyse reflective of chronic small vessel ischemic changes. No acute cortical infarction, hemorrhage, ma ss effect, or midline shift is visualized. There is diffuse cerebral volume loss similar to the prior exam. The ventricular system is normal in size, shape and position for the degree of sulcal atrophy. The visualized paranasal sinuses are clear. Mastoid effusions are seen on the right. Vascular calcifi cations seen in the distal vertebral arteries and involving the carotid siphons. Calvarial structures are intact. No other interval change. IMPRESSION: 1. No acute intracranial abnormalities demonstrated. 2. Chronic small vessel ischemic changes and cerebral volume loss not significantly progressed f rom prior exam. 3. Mastoid effusions on the right. POS: [facility]
[2017-08-31] MEDS ORDERED: Docusate 100 MG CAP PO SCH (21:00)
[2017-08-31] MEDS ORDERED: Heparin 5,000 UNITS/ML VIAL SC SCH (21:00)
[2017-09-01] MEDS ORDERED: Metoprolol Tartrate 25 MG TAB PO SCH (09:00)
--- NOTE | 2017-09-01 10:58 | DIS ---
DATE OF ADMISSION: 08/29/2017 DATE OF DISCHARGE: 08/31/2017 DISCHARGE DIAGNOSES: Type 2 diabetes mellitus with hyperglycemia, ischemic ulcer of bilateral feet, anemia of chronic disease, peripheral vascular disease, Alzheimer dementia, hypertension, altered sen sorium. HISTORY OF PRESENT ILLNESS/HOSPITAL COURSE: Ms. Clancy is an 86-year-old female with history of Al zheimer dementia, which is advanced; PVD; diabetes mellitus; and hypertension who lives at home with her daughter and was brought to the hospital due to multiple areas on both her feet developing open w ound. This has been chronic, but the patient has [facility]. Daughter felt it looks a bit worse and then brought the patient to the hospital. There were no other complai nts, but she has remarked that there was some increased redness, swelling, and warmth on the feet, so they brought her to the emergency room. She had been placed on [facility] a [facility] ago for a 7-day course. There was no history of fever, nausea, vomiting, diarrhea, or constipatio n. At the emergency room, hemoglobin was found to be less than 7, so she received 1 unit of PRBC wit h hemoglobin improving to about 8.4. The patient has a history of anemia of chronic disease; however , she was started on IV antibiotics while in the hospital receiving cefazolin. She was also continue d on medication for diabetes and hypertension. She has a diagnosis of atrial fibrillation diagnosed recently, but she was not started on any medications. While in the hospital, she had a heart rate ra nging from the 90s to the 110s, and so was started on metoprolol 12.5 mg b.i.d. which she responded t o. While in the hospital as well, she had an episode where she seemed to not be responding and was n ot eating. Therefore, a CT brain was ordered as well as a chest x-ray, blood cultures, vitamin B12, folate, as well as TSH. However, later that afternoon, she became responsive and back to her baselin e. So, this was likely due to dementia with an episode of hospital delirium, which had resolved befo re discharge. Daughter felt her mom was back to her baseline and felt comfortable taking her home. DISCHARGE MEDICATIONS: Omnicef 300 mg q.12 hours, lactobacillus acidophilus 1 twice a day with meals , metoprolol tartrate 12.5 mg b.i.d., amitriptyline 25 mg at bedside, Aricept 10 mg at bedtime, meman cecilia 10 mg twice a day, pyridoxine 100 mg daily, losartan 100 mg at bedtime, ferrous sulfate 47.5 mg daily, multivitamin 2 tablets daily, calcium plus vitamin D one tablet daily, multivitamin 1 tablet d aily, ascorbic acid 500 mg at bedtime, acetaminophen 500 mg twice a day, metformin 500 mg every morni ng with breakfast, glucosamine 1 tablet twice a day, aspirin 81 mg daily, folic acid 0.8 mg daily, cy anocobalamin 2500 mcg daily. PHYSICAL EXAMINATION: She was examined on the day of discharge. For details, refer to today's progr ess note. IMAGING: Brain CT, chest x-ray, bilateral foot x-ray, which showed motion artifact with no other sig nificant findings, no fracture or dislocation. CONSULTS: None. CONDITION AT DISCHARGE: Stable and improved. DIET: Heart healthy, diabetic. ACTIVITY: To resume as tolerated. CARE GOALS: Follow up with her primary care physician within 1 week of discharge. DISCHARGE TIME: 65 minutes including chart review and documentation.
== END 2017-08-31 18:48 | disposition home or self-care (01) | DRG 594 ==
LOC: SCSER 17:35 → T4-A 18:52 → OBSVTOIN 08-31 13:30
PROVIDERS: ADMIT Emergency Medicine; ATTEND Emergency Medicine
PROC: 30233N1 Transfusion of Nonautologous Red Blood Cells into Peripheral Vein, Percutaneous Approach (ICD-10-PCS; principal; 2017-08-31)
DX: E11.51 Type 2 diabetes mellitus with diabetic peripheral angiopathy without gangrene; R41.0 Disorientation, unspecified; F02.80 Dementia in other diseases classified elsewhere, unspecified severity, without behavioral disturbance, psychotic disturbance, mood disturbance, and anxiety; Z79.82 Long term (current) use of aspirin; Z79.899 Other long term (current) drug therapy; E11.22 Type 2 diabetes mellitus with diabetic chronic kidney disease; E11.65 Type 2 diabetes mellitus with hyperglycemia; L97.511 Non-pressure chronic ulcer of other part of right foot limited to breakdown of skin; D63.8 Anemia in other chronic diseases classified elsewhere; Z88.5 Allergy status to narcotic agent; L97.521 Non-pressure chronic ulcer of other part of left foot limited to breakdown of skin; N18.3 Chronic kidney disease, stage 3 (moderate); Z96.652 Presence of left artificial knee joint; I12.9 Hypertensive chronic kidney disease with stage 1 through stage 4 chronic kidney disease, or unspecified chronic kidney disease; Z79.84 Long term (current) use of oral hypoglycemic drugs; G30.9 Alzheimer's disease, unspecified
CPT/HCPCS: 36415; 36416; 36430; 70450; 71045; 80048; 81003; 81015; 82607; 82746; 84443; 85025; 86140; 86850; 86900; 86901; 87040; 96365; A4353; J3490; P9016

== ENCOUNTER 2017-09-17 16:13 | Observation (INO) | payer MEDICARE ==
[2017-09-17 16:56] LABS: Hemoglobin 8.6 g/dL (12.0-16.0); Mean Corpuscular HGB CONC 31.7 g/dL (32.0-36.0); Mean Corpuscular Hemoglobin 30.1 pg (27.0-31.0); Mean Corpuscular Volume 95.1 fl (81.0-99.0); Mean Platelet Volume 9.1 fL (7.4-10.4); Platelet Count 237 thou/uL (130-400); RBC Distribution Width 23.7 % (11.5-14.5); Red Blood Cell (RBC) Count 2.84 mill/uL (4.20-5.40)
[2017-09-17 17:11] LABS: Anisocytosis SLIGHT = 6-15 cells (100X) (0-5/hpf); Band 6 % (5-11); Eosinophils 2 % (0-10); Lymphocytes 28 % (21-51); MDiff Complete? YES; Monocytes 9 % (0-10); Neutrophil 53 % (42-75); PLT Morphology Comment Appears Adequate; Polychromasia SLIGHT = 2-3 cells (100X) (0-2/hpf); Reactive Lymphocytes 1 % (0-10); White Blood Cell (WBC) Count 8.1 thou/uL (4.8-10.8)
[2017-09-17 17:17] LABS: ALT (SGPT) 17 U/L (8-55); AST (SGOT) 34 U/L (5-34); Albumin 3.3 g/dL (3.4-4.8); Alkaline Phosphatase 95 U/L (40-150); Anion Gap 17 mmol/L (10-20); BUN (Urea Nitrogen) 41 mg/dL (9.8-20.1); Bilirubin, Total 0.3 mg/dL (0.2-1.2); Calc. Creatinine Clearance 0 mL/min (70-130); Carbon Dioxide 23 mmol/L (23-31); Chloride 99 mmol/L (98-107); Estimated GFR-MDRD 30; Globulin 6.5 g/dL (2.4-3.5); Glucose 105 mg/dL (83-110); Potassium 4.7 mmol/L (3.5-5.1); Protein, Total 9.8 g/dL (6.0-8.3); Sodium 134 mmol/L (136-145)
[2017-09-17 18:18] LABS: Bilirubin Negative (Negative); Blood, Urine Negative (Negative); Clarity CLEAR (Clear); Glucose, Urine (Dipstick) Negative (Negative); Leukocyte Negative (Negative); Nitrite Negative (Negative); Protein, Urine (Dipstick) Negative (Neg-Trace); Specific Gravity, Urine 1.012 (1.002-1.036); Urobilinogen 0.2 mg/dL (0.2-1.0); pH, Urine 5.5 (5.0-9.0)
[2017-09-17] MEDS ORDERED: Acetaminophen 325 MG TAB PO PRN (20:48)
[2017-09-17] MEDS ORDERED: Ondansetron ODT 4 MG TAB SL PRN (20:48)
[2017-09-17] MEDS ORDERED: Ondansetron HCl/PF 4 MG/2 ML Vial IVP PRN (20:48)
[2017-09-18] MEDS: Lactated Ringer's 1,000 ML IV SCH ×2 (01:26→05:34)
[2017-09-18 01:27] VITALS: BMI 24.9
[2017-09-18] MEDS ORDERED: Acetaminophen 650 MG Suppository PR PRN (03:52)
[2017-09-18] MEDS ORDERED: Dextrose 50% Abboject 50 ML SYRINGE SLOW IVP PRN (03:52)
[2017-09-18] MEDS ORDERED: Acetaminophen 325 MG TAB PO PRN (03:52)
[2017-09-18] MEDS ORDERED: HumaLOG 300 UNITS/3 ML VIAL SC PRN (03:52)
[2017-09-18] MEDS ORDERED: Dextrose 5% in Water 1,000 ML IV PRN (03:52)
[2017-09-18] MEDS ORDERED: Bisacodyl 5 MG TAB PO PRN (03:52)
--- NOTE | 2017-09-18 05:14 | HP ---
PRIMARY CARE PROVIDER: Arelis Cain M.D. CHIEF COMPLAINT: Generalized weakness. HISTORY OF PRESENT ILLNESS: Ms. Clancy is a pleasant 86-year-old lady who was seen at [facility] on 09/18/2017. She is unable to provide any history secondary to Alzheimer dis ease. History was obtained from her daughter by the bedside and review of medical record. She was hospitalized at this facility from 08/30 to 08/31 of this year for ischemic ulcer of bilatera l feet. Following discharge, she was supposed to have stents placed for peripheral vascular disease. She went for the procedure last week. Apparently, the procedure could not be completed because she was moving too much and had to be deferred. Over the last couple of days, Ms. Clancy was less responsive than usual, less interactive with her daughter. She needed encouragement to eat, which is unusual for her. She also needed encouragement to drink fluids. There is no history of fevers or chills. There is no history of nausea, vomiting, or diarrhea. Her daughter also noticed that her urine output had decreased over the last day. She therefore broug ht her to the emergency room. REVIEW OF SYSTEMS: Could not be completed secondary to Alzheimer disease. PAST MEDICAL HISTORY: Peripheral vascular disease, diabetes mellitus type 2, hypertension, Alzheimer 's dementia, basal cell carcinoma of the skin, hammertoes on both feet, and deconditioning. PAST SURGICAL HISTORY: Significant for status post basal cell skin excision, left thyroid lobectomy, left knee repair, hysterectomy, and bilateral hammertoe correction. FAMILY HISTORY: Significant for hypertension. CODE STATUS: I discussed her code status. She is FULL CODE. Her daughter is the substitute decisio n maker. ALLERGIES: No known drug allergies. CURRENT MEDICATIONS: Include acetaminophen 500 mg 2 times a day, amitriptyline 25 mg at bedtime, joel xicillin 500 mg 3 times a day, vitamin C 100 mg at bedtime, aspirin 81 mg daily, calcium/vitamin D on e tablet daily, ciprofloxacin 500 mg 2 times a day, vitamin B12 of 2500 mcg daily, Aricept 10 mg at b edtime, ferrous sulfate 47.5 mg daily, folic acid 0.8 mg daily, Osteo Bi-Flex triple strength 1 table t 2 times a day, lactobacillus 1 capsule 2 times a day, losartan 100 mg at bedtime, memantine 10 mg 2 times a day, metformin 500 mg daily, metoprolol tartrate 12.5 mg 2 times a day, multivitamins 2 tabl ets daily, Centrum multivitamins 1 tablet daily, and vitamin B6 100 mg daily. PHYSICAL EXAMINATION: GENERAL: Ms. Clancy is awake, not alert, keeping her eyes closed, but allowing me to open them wit h minimal resistance. VITAL SIGNS: She has a temperature of 99.1 degrees Fahrenheit, pulse 111, respiratory rate of 18, an d she is saturating 95% on room air. Blood pressure is 156/64. EYES: No scleral icterus. No conjunctival pallor. ENT: Dry mucosal membranes. NECK: Nontender, no thyromegaly, trachea is midline. RESPIRATORY: Accessory muscles of breathing are not active. Chest wall movements are symmetric bila terally. LUNGS: Clear to auscultation without wheeze, rhonchi or crepitations. ABDOMEN: Soft, nontender, bowel sounds are heard, no hepatomegaly, no splenomegaly. NEUROLOGIC: Full neurologic examination not possible secondary to the patient's noncooperation. No facial droop. Deep tendon reflexes 2+. LYMPHATIC: No cervical lymphadenopathy. MUSCULOSKELTAL: Moves all 4 limbs. SKIN: Dry gangrene of toes on both feet. Feeble dorsalis pedis bilaterally. PSYCHIATRIC: Unable to assess mood, affect or orientation to person, place or time. LABORATORY DATA: Ms. Clancy's labs and investigations were reviewed. She had an electrocardiogram , which showed normal sinus rhythm, no ST changes to suggest an acute coronary syndrome. She has nor mal white count, normocytic anemia with hemoglobin 8.6, last known hemoglobin was 8.4 on 08/31/2017, normal platelet count, decreased sodium of 134, elevated blood urea nitrogen of 41, elevated creatini ne of 1.62, last known creatinine 1.30 on 08/31/2017, decreased albumin of 3.3, otherwise unremarkabl e liver profile and a normal urinalysis. ASSESSMENT AND PLAN: Ms. Clancy is a pleasant 86-year-old lady who was seen at [facility] on 09/18/2017. Her problem list includes: 1. Dehydration: She is presenting with dehydration secondary to poor oral intake. The patient will be admitted to the hospital for further management including intravenous fluids. 2. Acute on chronic renal failure: Likely prerenal secondary to dehydration. We will provide intra venous hydration and recheck her creatinine level. We will also hold nephrotoxic medications includi ng ARB and metformin. 3. Diabetes mellitus type 2: Start Accu-Cheks, insulin sliding scale. 4. Hypertension: Monitor vital signs, titrate antihypertensives as needed. 5. Alzheimer's dementia: Stable, according to the patient's daughter. 6. Peripheral vascular disease. The patient to follow up as outpatient for stent placement. Many thanks for allowing me to participate in your patient's care. Please feel free to contact me wi th any questions or concerns. LEVEL OF RISK: Moderate. LEVEL OF COMPLEXITY: Moderate.
[2017-09-18] MEDS: Sodium Chloride 0.9% 1,000 ML IV SCH ×2 (05:43→13:32)
[2017-09-18] MEDS: AMOXicillin 250 MG CAP PO SCH ×3 (05:44→20:38)
[2017-09-18] MEDS: Lactinex Tablet PO SCH ×2 (07:45→17:26)
[2017-09-18] MEDS: pyridOXINE 50 MG (B6) TAB PO SCH (07:45)
[2017-09-18] MEDS: Calcium Carbonate + Vit D 1 TAB PO SCH (07:45)
[2017-09-18] MEDS: Cyanocobalamin (Vitamin B-12) 1,000 MCG TAB PO SCH (07:45)
[2017-09-18] MEDS: Folic Acid 1 MG TAB PO SCH (07:47)
[2017-09-18] MEDS: Acetaminophen 500 MG TAB PO SCH ×2 (07:47→20:36)
[2017-09-18] MEDS: Multivitamin W/ Minerals 1 TAB PO SCH (07:47)
[2017-09-18] MEDS: Cipro 250 MG TAB PO SCH ×2 (07:47→20:38)
[2017-09-18] MEDS: Ferrous Sulfate 325 MG TAB PO SCH (07:47)
[2017-09-18] MEDS: Metoprolol Tartrate 25 MG TAB PO SCH ×2 (07:48→20:36)
[2017-09-18] MEDS: Enoxaparin Sodium 30 MG/0.3 ML SYRINGE SC SCH (07:48)
[2017-09-18] MEDS ORDERED: [UNRECOGNIZED DRUG - OTHER] PO SCH (09:00)
[2017-09-18] MEDS ORDERED: Non-Formulary Item 1 EACH (Multivitamin/Iron/Folic Acid [Centrum Adults Tablet] 1 EACH) PO SCH (09:00)
--- NOTE | 2017-09-18 16:26 | PDOC.PN ---
- Subjective Encounter Start Date: 09/18/17 Encounter Start Time: 16:24 Ms. Clancy was seen today in follow-up of dehydration. She was sleep , but her daughter is at bedside, ans says she seems a little more alert, but not yet at her baseline. - Objective Resuscitation Status: Resuscitation Status FULL:Full Resuscitation MAR Reviewed: Yes Vital Signs & Weight: Vital Signs (12 hours) Temp Pulse Resp BP Pulse Ox 09/18/17 11:27 98.4 F 84 16 120/60 99 09/18/17 08:00 98.1 F 98 16 152/71 H 98 Weight Weight 149 lb 14.629 oz I&O: 09/17/17 09/18/17 09/19/17 06:59 06:59 06:59 Intake Total 1850 Balance 1850 Result Diagrams: 09/17/17 16:45 09/17/17 16:45 Additional Labs: Accuchecks 09/18/17 09/18/17 11:00 04:55 POC Glucose 163 H 126 H Phys Exam - Physical Examination HEENT: PERRLA Respiratory: no wheezing, no rales, no rhonchi, clear to auscultation bilateral Cardiovascular: RRR, no significant murmur, no rub Gastrointestinal: soft, non-tender, positive bowel sounds + multiple ulcers on both feet + hammer toe deformities bilaterally Dx/Plan (1) Acute renal failure Status: Acute (2) HTN (hypertension) Code(s): I10 - ESSENTIAL (PRIMARY) HYPERTENSION Status: Chronic Qualifiers: Hypertension type: essential hypertension Qualified Code(s): I10 - Essential (primary) hypertension Comment: Fair control. Continue current medications. (3) Ischemic ulcer of both feet Code(s): L97.519 - NON-PRS CHRONIC ULCER OTH PRT RIGHT FOOT W UNSP SEVERITY; L97.529 - NON-PRESSURE CHRONIC ULCER OTH PRT LEFT FOOT W UNSP SEVERITY Status : Acute Qualifiers: Non-pressure ulcer stage: limited to breakdown of skin Qualified Code(s): L97.511 - Non-pressure chronic ulcer of other part of right foot limited to breakdown of skin; L97.521 - Non-pressure chronic ulcer of other part of left foot limited to breakdown of skin; L97.521 - Non-pressure chronic ulcer of other part of left foot limited to breakdown of skin; L97.521 - Non-pressure chronic ulcer of other part of left foot limited to breakdown of skin; L97.521 - Non-pressure chronic ulcer of other part of left foot limited to breakdown of skin Comment: Continue antibiotics, wound care. Scheduled for procedure September 06. (4) Alzheimer's dementia Code(s): G30.9 - ALZHEIMER'S DISEASE, UNSPECIFIED; F02.80 - DEMENTIA IN OTH DISEASES CLASSD ELSWHR W/O BEHAVRL DISTURB Status: Chronic Qualifiers: Alzheimer's disease onset: unspecified onset Dementia behavioral disturbance: without behavioral disturbance Qualified Code(s): G30.9 - Alzheimer's disease, unspecified; F02.80 - Dementia in other diseases classified elsewhere without behavioral disturbance; F02.80 - Dementia in other diseases classified elsewhere without behavioral disturbance; F02.80 - Dementia in other diseases classified elsewhere without behavioral disturbance Comment: Delirium precautions. (5) PVD (peripheral vascular disease) Code(s): I73.9 - PERIPHERAL VASCULAR DISEASE, UNSPECIFIED Status: Chronic Comment: Continue home medications. (6) Diabetes mellitus type 2 in nonobese Code(s): E11.9 - TYPE 2 DIABETES MELLITUS WITHOUT COMPLICATIONS Status: Chronic - Plan * Acute renal failure- likely from volume depletion- continue IV hydration * I explained to her daughter that she likely does not keep up with oral intake due to advanced dementia, but she did not seem to assept this explanation * HTN- blood pressure is stable * PVD- severe arterial ulcers as a result- these are being treated conservatively- continue wound care- she does not appear to be in pain * DM - blood glucose is stable.
--- NOTE | 2017-09-18 17:28 | PDOC.EVN ---
Event Note - Event Note Event Note: The patient was seen for the purposes of Advanced Care Planning. The patient's daughter was at the bedside, and because the patient has advanced dementia, she is not decisional and therefore decision making was directed to the patient's daughter. The patient is admitted with acute renal failure associated with dehydration. The patient also has advanced Dementia from Alzheimer's disease,Diabetes Mellitus, type 2, and severe peripheral Vascular disease resulting in inoperable arterial ulcers on both feet. The patient's condition is likely the direct result of the patient's advanced dementia. I explained this the patient' s daughter who is also her auto inspection specialist patient care nursing assistant. We discussed the natural history of Alzheimer's disease, and the likelihood that she will experience continued decline, and decreased oral intake. We also discussed what the patient 's daughter's expectation are with regard to treatment. She does not want aggressive testing and procedures, but does want her mother the be comfortable, and treat acute conditions when they arise The patient's daughter is not yet ready to consider Hospice, care, as she said she entertained that possibility some months back, but was under the impression that she would have to be taken off her medications for Alzheimer's Disease. After discussing these issues, her daughter said she is not ready for Hospice care for her mother, but would consider Home Health, to help triage,which symptoms need hospital care, and what can be managed at home. She will also remain a Full code.
[2017-09-18] MEDS ORDERED: Amitriptyline HCl 25 MG TAB PO SCH (21:00)
[2017-09-18] MEDS ORDERED: Ascorbic Acid 500 mg Chewable Tablet PO SCH (21:00)
[2017-09-18] MEDS ORDERED: Donepezil HCl 10 MG TAB PO SCH (21:00)
[2017-09-19 00:19] VITALS: TEMP 98.4
[2017-09-19] MEDS: Sodium Chloride 0.9% 1,000 ML IV SCH ×2 (01:10→11:04)
[2017-09-19 04:06] VITALS: BP 134/77
[2017-09-19 04:53] LABS: #Basophils 0.1 thou/uL (0.0-0.2); #Eosinphils 0.2 thou/uL (0.0-0.7); #Lymphocytes 2.7 thou/uL (1.20-3.40); #Monocytes 0.7 thou/uL (0.11-0.59); #Neutrophils 3.1 thou/uL (1.40-6.50); %Basophils 1.2 % (0.0-1.0); %Eosinophils 2.6 % (0.0-10.0); %Lymphocytes 39.8 % (21.0-51.0); %Monocytes 10.4 % (0.0-10.0); %Neutrophils 46.1 % (42.0-75.0); Hemoglobin 7.4 g/dL (12.0-16.0); Mean Corpuscular HGB CONC 32.3 g/dL (32.0-36.0); Mean Corpuscular Hemoglobin 31.5 pg (27.0-31.0); Mean Corpuscular Volume 97.3 fl (81.0-99.0); Mean Platelet Volume 10.3 fL (7.4-10.4); Platelet Count 182 thou/uL (130-400); RBC Distribution Width 23.7 % (11.5-14.5); Red Blood Cell (RBC) Count 2.33 mill/uL (4.20-5.40); White Blood Cell (WBC) Count 6.7 thou/uL (4.8-10.8)
[2017-09-19 04:58] LABS: Anion Gap 16 mmol/L (10-20); BUN (Urea Nitrogen) 23 mg/dL (9.8-20.1); Calc. Creatinine Clearance 41 mL/min (70-130); Calcium 8.7 mg/dL (7.8-10.44); Carbon Dioxide 21 mmol/L (23-31); Chloride 107 mmol/L (98-107); Estimated GFR-MDRD 52; Glucose 107 mg/dL (83-110); Potassium 4.4 mmol/L (3.5-5.1); Sodium 140 mmol/L (136-145)
[2017-09-19] MEDS: AMOXicillin 250 MG CAP PO SCH (05:46)
[2017-09-19] MEDS: Metoprolol Tartrate 25 MG TAB PO SCH (08:19)
[2017-09-19] MEDS: Acetaminophen 500 MG TAB PO SCH (08:20)
[2017-09-19] MEDS: Multivitamin W/ Minerals 1 TAB PO SCH (08:20)
[2017-09-19] MEDS: Lactinex Tablet PO SCH (08:20)
[2017-09-19] MEDS: Cyanocobalamin (Vitamin B-12) 1,000 MCG TAB PO SCH (08:20)
[2017-09-19] MEDS: Folic Acid 1 MG TAB PO SCH (08:21)
[2017-09-19] MEDS: Ferrous Sulfate 325 MG TAB PO SCH (08:21)
[2017-09-19] MEDS: Calcium Carbonate + Vit D 1 TAB PO SCH (08:21)
[2017-09-19] MEDS: Cipro 250 MG TAB PO SCH (08:21)
[2017-09-19] MEDS: pyridOXINE 50 MG (B6) TAB PO SCH (08:21)
[2017-09-19] MEDS: Enoxaparin Sodium 30 MG/0.3 ML SYRINGE SC SCH (08:22)
--- NOTE | 2017-09-19 11:05 | PDOC.PN ---
- Subjective Encounter Start Date: 09/19/17 Encounter Start Time: 11:03 Ms. Clancy was seen today in follow-up. She has been sleeping through much of the day. - Objective Resuscitation Status: Resuscitation Status FULL:Full Resuscitation MAR Reviewed: Yes Vital Signs & Weight: Vital Signs (12 hours) Temp Pulse Resp BP Pulse Ox 09/19/17 08:00 98.4 F 79 18 92 L 09/19/17 04:00 98.4 F 79 18 134/77 92 L 09/19/17 00:00 98.4 F 89 20 107/68 94 L Weight Weight 149 lb 14.629 oz I&O: 09/18/17 09/19/17 09/20/17 06:59 06:59 06:59 Intake Total 1850 Balance 1850 Result Diagrams: 09/19/17 03:51 09/19/17 03:51 Additional Labs: Accuchecks 09/18/17 09/18/17 15:36 11:00 POC Glucose 198 H 163 H Phys Exam - Physical Examination HEENT: PERRLA Respiratory: no wheezing, no rales, no rhonchi, clear to auscultation bilateral Cardiovascular: RRR, no significant murmur Gastrointestinal: soft, non-tender, positive bowel sounds Musculoskeletal: no edema chronic leg ulcers Dx/Plan (1) Acute renal failure Status: Acute (2) HTN (hypertension) Code(s): I10 - ESSENTIAL (PRIMARY) HYPERTENSION Status: Chronic Qualifiers: Hypertension type: essential hypertension Qualified Code(s): I10 - Essential (primary) hypertension Comment: Fair control. Continue current medications. (3) Ischemic ulcer of both feet Code(s): L97.519 - NON-PRS CHRONIC ULCER OTH PRT RIGHT FOOT W UNSP SEVERITY; L97.529 - NON-PRESSURE CHRONIC ULCER OTH PRT LEFT FOOT W UNSP SEVERITY Status : Acute Qualifiers: Non-pressure ulcer stage: limited to breakdown of skin Qualified Code(s): L97.511 - Non-pressure chronic ulcer of other part of right foot limited to breakdown of skin; L97.521 - Non-pressure chronic ulcer of other part of left foot limited to breakdown of skin; L97.521 - Non-pressure chronic ulcer of other part of left foot limited to breakdown of skin; L97.521 - Non-pressure chronic ulcer of other part of left foot limited to breakdown of skin; L97.521 - Non-pressure chronic ulcer of other part of left foot limited to breakdown of skin Comment: Continue antibiotics, wound care. Scheduled for procedure September 06. (4) Alzheimer's dementia Code(s): G30.9 - ALZHEIMER'S DISEASE, UNSPECIFIED; F02.80 - DEMENTIA IN OTH DISEASES CLASSD ELSWHR W/O BEHAVRL DISTURB Status: Chronic Qualifiers: Alzheimer's disease onset: unspecified onset Dementia behavioral disturbance: without behavioral disturbance Qualified Code(s): G30.9 - Alzheimer's disease, unspecified; F02.80 - Dementia in other diseases classified elsewhere without behavioral disturbance; F02.80 - Dementia in other diseases classified elsewhere without behavioral disturbance; F02.80 - Dementia in other diseases classified elsewhere without behavioral disturbance Comment: Delirium precautions. (5) PVD (peripheral vascular disease) Code(s): I73.9 - PERIPHERAL VASCULAR DISEASE, UNSPECIFIED Status: Chronic Comment: Continue home medications. (6) Diabetes mellitus type 2 in nonobese Code(s): E11.9 - TYPE 2 DIABETES MELLITUS WITHOUT COMPLICATIONS Status: Chronic - Plan * Acute renal failure- resolved * Advanced Dementia- stable * Anemia- chronic * Stable for discharge today.
--- NOTE | 2017-09-19 12:08 | DIS ---
PRIMARY CARE PHYSICIAN: Dr. Cain DATE OF ADMISSION: 09/18/2017 DATE OF DISCHARGE: 09/19/2017 DISCHARGE DISPOSITION: Home. PRIMARY DISCHARGE DIAGNOSES: 1. Acute renal failure secondary to volume depletion. 2. Advanced Alzheimer dementia. 3. Chronic arterial ulcers of the feet. 4. Hypertension. 5. Hammertoe deformities of both feet. 6. Diabetes mellitus, type 2. DISCHARGE MEDICATIONS: The dose of losartan was decreased from 100 to 50 mg daily due to the acute r enal failure. She is to continue vitamin D 600 mg daily, multivitamin once daily, metoprolol 12.5 mg twice a day, memantine 10 mg twice daily, lactobacillus 1 tablet daily, folic acid 0.8 mg p.o. daily , slow iron 47.5 mg daily, donepezil 10 mg at bedtime, vitamin B12 2500 units p.o. daily, Cipro 500 m g twice a day, vitamin D tablet daily, aspirin 81 mg daily, ascorbic acid 500 mg at bedtime, amitript yline 25 mg at bedtime and Tylenol p.r.n. CODE STATUS: Full code. ALLERGIES: TRAMADOL. HOSPITAL COURSE: Ms. Clancy is a pleasant 86-year-old female who was brought to the hospital [facility] se her daughter was concerned that she seemed more lethargic than usual. She was brought into the ER and initial evaluation was essentially negative with the exception of an elevated creatinine. Urina lysis was negative for urinary tract infection. It is felt that some of her symptoms could be relate d to the dehydration. However, after hydration she still seemed a bit lethargic. I did talk to the patient daughter on the admission day about the patient's overall prognosis with the advanced Alzheim er disease, that it is expected that her oral intake progressively decline and her overall activity l evel will also decline as well. We discussed palliative care and the patient's daughter was not quit e ready for this at this time, but says that she does have an understanding of how sick her mother is . She says that her father recently and she had a very tough time with this and is just not los dy to let go yet. The patient at the time of discharge was clinically stable. She is afebrile. Vit al signs were all stable. Oxygen saturations were good on room air and therefore will be discharged home with close outpatient followup.
== END 2017-09-19 13:10 | disposition home or self-care (01) ==
LOC: ERS 16:13 → T4-A 18:05
PROVIDERS: ADMIT Family Medicine; ATTEND Family Medicine
DX: E86.0 Dehydration (principal); N17.8 Other acute kidney failure; G30.9 Alzheimer's disease, unspecified; F02.81 Dementia in other diseases classified elsewhere, unspecified severity, with behavioral disturbance; I10 Essential (primary) hypertension; M20.42 Other hammer toe(s) (acquired), left foot; M20.41 Other hammer toe(s) (acquired), right foot; E11.621 Type 2 diabetes mellitus with foot ulcer; L97.529 Non-pressure chronic ulcer of other part of left foot with unspecified severity; L97.519 Non-pressure chronic ulcer of other part of right foot with unspecified severity; E11.51 Type 2 diabetes mellitus with diabetic peripheral angiopathy without gangrene; E89.0 Postprocedural hypothyroidism; Z79.2 Long term (current) use of antibiotics; Z79.82 Long term (current) use of aspirin; Z79.84 Long term (current) use of oral hypoglycemic drugs; Z79.899 Other long term (current) drug therapy; Z88.5 Allergy status to narcotic agent
CPT/HCPCS: 51701; 80048; 80053; 81003; 82962 ×2; 85025 ×2; 93005; 96360; 96361 ×2; 96372 ×2; 97139; 99285; G0378; 36415; 36416; A4216; A4353; J1650

== ENCOUNTER 2017-11-14 16:00 | Inpatient (IN) | payer MEDICARE ==
--- NOTE | 2017-11-14 18:27 | RAD ---
RADIOGRAPH RIGHT FOOT TWO VIEWS: 11/14/2017 5:37 p.m. HISTORY: An 86-year-old female with gangrene of the right foot, sent from the wound care center. COMPARISON: 08/29/2017 FINDINGS: Again noted is the superficial soft tissue wound medial to the first MTP joint. There is a new findi ng of gas within the soft tissues (subcutaneous emphysema) along the plantar aspect of the forefoot, centered between the first and second MTPs, between the first and second distal metatarsal shafts, an d adjacent to the second, third, fourth, and fifth MTP joints. Again demonstrated is the severe athe rosclerotic calcification of the anterior tibial artery, the dorsalis pedis artery, and the posterior tibial artery. No chayito bone destruction is identified. IMPRESSION: 1. Subcutaneous emphysema is evidence for gangrene. 2. No chayito bone destruction identified. 3. Atherosclerosis. POS: [facility]
[2017-11-14 18:35] LABS: Hemoglobin 6.4 g/dL (12.0-16.0); Mean Corpuscular HGB CONC 30.5 g/dL (32.0-36.0); Mean Corpuscular Hemoglobin 28.1 pg (27.0-31.0); Mean Corpuscular Volume 92.1 fl (81.0-99.0); Mean Platelet Volume 9.5 fL (7.4-10.4); Platelet Count 277 thou/uL (130-400); RBC Distribution Width 25.9 % (11.5-14.5); Red Blood Cell (RBC) Count 2.27 mill/uL (4.20-5.40)
[2017-11-14 18:36] LABS: ALT (SGPT) 12 U/L (8-55); AST (SGOT) 37 U/L (5-34); Albumin 2.9 g/dL (3.4-4.8); Alkaline Phosphatase 78 U/L (40-150); Anion Gap 18 mmol/L (10-20); BUN (Urea Nitrogen) 46 mg/dL (9.8-20.1); Bilirubin, Total 0.3 mg/dL (0.2-1.2); Calc. Creatinine Clearance 0 mL/min (70-130); Calcium 9.7 mg/dL (7.8-10.44); Carbon Dioxide 21 mmol/L (23-31); Chloride 100 mmol/L (98-107); Estimated GFR-MDRD 42; Globulin 6.7 g/dL (2.4-3.5); Glucose 126 mg/dL (83-110); Potassium 4.6 mmol/L (3.5-5.1); Protein, Total 9.6 g/dL (6.0-8.3); Sodium 134 mmol/L (136-145)
[2017-11-14 18:56] LABS: Anisocytosis MODERATE=16-30 cells (100X) (0-5/hpf); Band 10 % (5-11); Eosinophils 1 % (0-10); Lymphocytes 22 % (21-51); MDiff Complete? YES; Metamyelocyte 1 % (0-0); Monocytes 1 % (0-10); Neutrophil 64 % (42-75); Nucleated RBC 1 % (0); PLT Morphology Comment Appears Adequate; Polychromasia MODERATE = 3-4 cells (100X) (0-2/hpf); Target Cells SLIGHT = 2-5 cells (100X) (0-1/hpf); Toxic Granulation SLIGHT; Vacuoles SLIGHT
--- NOTE | 2017-11-14 20:43 | PDOC.FPRHP ---
- History of Present Illness Chief Complaint: wound infection History of Present Illness: 86 yo F w/ pmh of advanced alzheimers A&O X0 at baseline and significant pvd presents for evaluation and treatemtn of foot wounds. She has been seeing op wound care for debridement and treatment of dry gangrenous toes and was ssen today and referred for concern of red streaking extending up the dorsal aspect of the right foot. The pt was nonverbal throughout encounter so history was obtained primarily through the pts daughter and er records. ED Course: vancomycin - Allergies/Adverse Reactions Allergies Allergy/AdvReac Type Severity Reaction Status Date / Time tramadol Allergy Verified 09/17/17 20:40 - Home Medications Medication Instructions Recorded Confirmed Type Amitriptyline HCl 25 mg PO HS 05/09/17 11/14/17 History Donepezil HCl [Aricept] 10 mg PO HS 05/09/17 11/14/17 History Memantine HCl [Namenda] 10 mg PO BID 05/09/17 11/14/17 History pyridOXINE [Vitamin B 6] 100 mg PO DAILY 05/09/17 11/14/17 History Acetaminophen [Tylenol Extra 500 mg PO BID 08/29/17 11/14/17 History Strength] Ascorbic Acid [Vitamin C Chewable 500 mg PO HS 08/29/17 11/14/17 History Tablet] Aspirin [Aspirin Chewable Tablet] 81 mg PO DAILY 08/29/17 11/14/17 History Calcium Carb/Vitamin D3/Vit K1 1 tablet PO DAILY 08/29/17 11/14/17 History [Calcium + D Soft Chewable Tablet] Cyanocobalamin (Vitamin B-12) 2,500 mcg PO DAILY 08/29/17 11/14/17 History [Vitamin B12] Ferrous Sulfate [Slow Release Iron] 47.5 mg PO DAILY 08/29/17 11/14/17 History Folic Acid 0.8 mg PO DAILY 08/29/17 11/14/17 History Glucosam/Jeb-Msm1/C/Jim/Bosw 1 tab PO BID 08/29/17 11/14/17 History [Osteo Bi-Flex Triple Strength] Multivit-Minerals/Folic Acid 2 tablet PO DAILY 08/29/17 11/14/17 History [Adult One Daily Gummies] Multivitamin/Iron/Folic Acid 1 each PO DAILY 08/29/17 11/14/17 History [Centrum Adults Tablet] metFORMIN HCl [metFORMIN HCl ER] 500 mg PO QAM-WM 08/29/17 11/14/17 History Lactobacillus Acidophilus 1 each PO BID-WM #14 capsule 08/30/17 11/14/17 Rx [Digestive Probiotic] Metoprolol Tartrate 12.5 mg PO BID #60 tablet 08/31/17 11/14/17 Rx Losartan Potassium 50 mg PO HS #0 09/19/17 11/14/17 Rx - History PMHx:alzheimers, pvd, htn PSHx: unknown FHx: NA Social: unknown - Review of Systems ROS unobtainable: due to mental status - Vital signs BP: 138/78 HR: 99 RR: 17 Tmax: 98.4 Pox:95 % on RA Wt: 64Kg - Physical Exam Constitutional: NAD HEENT: normocephalic and atraumatic Neck: supple, trachea midline, no LAD, no JVD Chest: no-tender to palpation Heart: RRR, normal S1/S2, no murmurs/rubs/gallops, pulses present (diminished posterior tib pulses b/l) Lungs: CTAB, no respiratory distress, good air movement, no rales/rhonchi, no wheezing, no retractions Abdomen: soft, non-tender, bowel sounds present, no masses/distention Musculoskeletal: normal structure, normal tone, other (dry gangrene b/l feet w/ o surrounding erythema or warmth) Neurological: no focal deficit Skin: no rash/lesions, good turgor, capillary refill <2 seconds Heme/Lymphatic: no unusual bruising or bleeding Psychiatric: other (a&oX0) FMR H&P: Results - Labs Result Diagrams: 11/15/17 04:55 11/15/17 04:55 Lab results: WBC 12.0 thou/uL (4.8-10.8) H 11/14/17 18:04 Hgb 6.4 g/dL (12.0-16.0) L 11/14/17 18:04 Hct 20.9 % (36.0-47.0) L 11/14/17 18:04 MCV 92.1 fl (81.0-99.0) 11/14/17 18:04 Plt Count 277 thou/uL (130-400) 11/14/17 18:04 Band Neuts % (Manual) 10 % (5-11) 11/14/17 18:04 Sodium 134 mmol/L (136-145) L 11/14/17 18:04 Potassium 4.6 mmol/L (3.5-5.1) 11/14/17 18:04 Chloride 100 mmol/L (98-107) 11/14/17 18:04 Carbon Dioxide 21 mmol/L (23-31) L 11/14/17 18:04 BUN 46 mg/dL (9.8-20.1) H 11/14/17 18:04 Creatinine 1.21 mg/dL (0.6-1.1) H 11/14/17 18:04 Glucose 126 mg/dL (83-110) H 11/14/17 18:04 Lactic Acid 2.2 mmol/L (0.5-2.2) 11/14/17 18:04 Calcium 9.7 mg/dL (7.8-10.44) 11/14/17 18:04 Total Bilirubin 0.3 mg/dL (0.2-1.2) 11/14/17 18:04 AST 37 U/L (5-34) H 11/14/17 18:04 ALT 12 U/L (8-55) 11/14/17 18:04 Alkaline Phosphatase 78 U/L (40-150) 11/14/17 18:04 Serum Total Protein 9.6 g/dL (6.0-8.3) H 11/14/17 18:04 Albumin 2.9 g/dL (3.4-4.8) L 11/14/17 18:04 - Radiology Interpretation Other Status: report reviewed by me (foot xr evidence of dry gangrene, no evidence of osteo) FMR H&P: A/P - Problem List (1) Cellulitis of foot, right Current Visit: No Status: Acute Code(s): L03.115 - CELLULITIS OF RIGHT LOWER LIMB (2) Ischemic ulcer of both feet Current Visit: No Status: Acute Code(s): L97.519 - NON-PRS CHRONIC ULCER OTH PRT RIGHT FOOT W UNSP SEVERITY; L97.529 - NON-PRESSURE CHRONIC ULCER OTH PRT LEFT FOOT W UNSP SEVERITY Qualifiers: Non-pressure ulcer stage: limited to breakdown of skin Qualified Code(s): L97.511 - Non-pressure chronic ulcer of other part of right foot limited to breakdown of skin; L97.521 - Non-pressure chronic ulcer of other part of left foot limited to breakdown of skin; L97.521 - Non-pressure chronic ulcer of other part of left foot limited to breakdown of skin; L97.521 - Non-pressure chronic ulcer of other part of left foot limited to breakdown of skin; L97.521 - Non-pressure chronic ulcer of other part of left foot limited to breakdown of skin (3) Type 2 diabetes mellitus with hyperglycemia Current Visit: No Status: Acute Code(s): E11.65 - TYPE 2 DIABETES MELLITUS WITH HYPERGLYCEMIA Qualifiers: Diabetes mellitus alf insulin use: without termite technician use Qualified Code(s): E11.65 - Type 2 diabetes mellitus with hyperglycemia Comment: (4) Alzheimer's dementia Current Visit: No Status: Chronic Code(s): G30.9 - ALZHEIMER'S DISEASE, UNSPECIFIED; F02.80 - DEMENTIA IN OTH DISEASES CLASSD ELSWHR W/O BEHAVRL DISTURB Qualifiers: Alzheimer's disease onset: unspecified onset Dementia behavioral disturbance: without behavioral disturbance Qualified Code(s): G30.9 - Alzheimer's disease, unspecified; F02.80 - Dementia in other diseases classified elsewhere without behavioral disturbance; F02.80 - Dementia in other diseases classified elsewhere without behavioral disturbance; F02.80 - Dementia in other diseases classified elsewhere without behavioral disturbance (5) Anemia of chronic disease Current Visit: No Status: Chronic Code(s): D63.8 - ANEMIA IN OTHER CHRONIC DISEASES CLASSIFIED ELSEWHERE Comment: (6) HTN (hypertension) Current Visit: No Status: Chronic Code(s): I10 - ESSENTIAL (PRIMARY) HYPERTENSION Qualifiers: Hypertension type: essential hypertension Qualified Code(s): I10 - Essential (primary) hypertension (7) PVD (peripheral vascular disease) Current Visit: No Status: Chronic Code(s): I73.9 - PERIPHERAL VASCULAR DISEASE, UNSPECIFIED - Plan 1) Cellulitis of rt foot: IV abx with vancomycin and zosyn -maintenence fluids admit medical -consult surg in am for evaluation of gangrenous toes -consider am MRI to r/o osteo; will await surg recs 2) HTN: home meds 3) DMII: HOme meds 4) PVD: advanced, daughter reports they have declined stent placement in past -cont home medications 5) advanced end stage alzheimers: -palliative care consult for goals of care and help with poa and advanced directives 6) code status: pts daughter wishes for mother to be full code, will place order for now pending palliative recs 7) PPX: pepcid and lovenox for gi and dvt ppx respectively 8) anemia of chronic disease: s/p 1Uprbcs, am cbc, trend. Discuss goals of care , palliative consulted Disposition/LOS: stable, >/= 2 days FMR H&P: Upper Level - Pertinent history Pt is an 86 yo F with PMH of foot ulcers 2/2 to severe PAD and advanced Alzheimer's disease who presents to ED with her live in robot programmer and daughter for RLE redness. She was seen at an outpatient wound care place on [facility] today and they asked her to come into the hospital for concern for infection of the foot. Dr. Lerner consulted from ED. Past hx of stable ulcer for about 2 years until she stepped on it and due to poor wound healing wounds have gotten worse since 2016 and she has been going to outpatient wound care. PCP is Dr. Cain who was getting her set up for some type of wound vac to try to stave off amputation per daughter. She has not had fever, progressive redness , swelling, eating and drinking normally, no signs of pain per daughter. - Pertinent findings General: no resp distress, AOx0, mumbles, scratching at face HEENT: dry mm cardiac: RRR, no murmurs, gallops, clicks, rubs Lungs: CTA Abdomen: soft non- TTP - Plan Date/Time: 11/14/172034 IEssie, have evaluated this patient and agree with findings/plan as outlined by Dr. Torres qa internship resident. Pertinent changes/additions are listed here. 1. gangrene of multiple R MTP joints and cellulitis of RLE-continue vanc, addd zosyn for pseudomonal coverage given hyperglycemia/DM- gen surg consulted in ED , will eval in AM, NPO @ [place] 2. b/l LE ulcerations-poor candidate for revascularization per daughter, they have seen multiple specialists, will consult wound care 3. PAD b/l LE- as above 4. Alzheimer's dementia- continue home meds, long discussion about code status, daughter wants her full code but notes that her mother wouldn't want everything done. Consult palliative care for goals of care and ethic consult as daughter/ patient's wishes differ. Pt's daughter also notes that she has been eating and drinking fine--will obtain bedside swallow when she is no longer NPO after gen surg eval 5. htn-continue home meds 6. DASHAWN on CKD III-resolved with fluid admin 7. anemia of chronic disease- given 1 U pRBC, CBC this AM shows improvd H/H now 7.4 Hgb Attending Addendum - Attending Addendum Date/Time: 11/15/17 1441 I personally evaluated the patient and discussed the management with Dr. Pedersen , Dr. Torres, and Dr. Selby I agree with the History, Examination, Assessment and Plan documented above with any addition or exceptions noted below. 86 yo female with end stage Alzheimer's disease admitted for gangrene of the lower extremities. Surgery to evaluate. Will discuss plan of care with family members to decide if amputation or Hospice would be best choice. Will trend labs as needed. Transfuse 1 unit. Monitor. Maciel
[2017-11-14 22:02] VITALS: BMI 21.8
[2017-11-14 22:10] LABS: Lactic Acid 1.6 mmol/L (0.5-2.2)
[2017-11-14] MEDS ORDERED: Dextrose 5% in Water 1,000 ML IV PRN (23:56)
[2017-11-14] MEDS ORDERED: Ondansetron HCl/PF 4 MG/2 ML Vial IVP PRN (23:56)
[2017-11-14] MEDS ORDERED: Acetaminophen 325 MG TAB PO PRN (23:56)
[2017-11-14] MEDS ORDERED: Dextrose 50% Abboject 50 ML SYRINGE SLOW IVP PRN (23:56)
[2017-11-15] MEDS: Sodium Chloride 0.9% 1,000 ML IV SCH ×3 (02:16→14:43)
[2017-11-15] MEDS: Piperacillin/Tazobactam 2.25 GM in Sodium Chloride 0.9% 100 ML IVPB SCH ×4 (02:19→21:05)
[2017-11-15 05:31] LABS: #Eosinphils 0.1 thou/uL (0.0-0.7); #Lymphocytes 2.3 thou/uL (1.20-3.40); #Neutrophils 7.2 thou/uL (1.40-6.50); %Basophils 0.4 % (0.0-1.0); %Eosinophils 1.1 % (0.0-10.0); %Lymphocytes 21.3 % (21.0-51.0); %Monocytes 9.8 % (0.0-10.0); %Neutrophils 67.5 % (42.0-75.0); Anion Gap 14 mmol/L (10-20); BUN (Urea Nitrogen) 35 mg/dL (9.8-20.1); Calc. Creatinine Clearance 38 mL/min (70-130); Calcium 9.2 mg/dL (7.8-10.44); Carbon Dioxide 25 mmol/L (23-31); Chloride 104 mmol/L (98-107); Estimated GFR-MDRD 51; Glucose 128 mg/dL (83-110); Hemoglobin 7.5 g/dL (12.0-16.0); Mean Corpuscular HGB CONC 32.8 g/dL (32.0-36.0); Mean Corpuscular Volume 91.5 fl (81.0-99.0); Mean Platelet Volume 9.2 fL (7.4-10.4); Platelet Count 262 thou/uL (130-400); Potassium 4.6 mmol/L (3.5-5.1); RBC Distribution Width 22.6 % (11.5-14.5); Red Blood Cell (RBC) Count 2.49 mill/uL (4.20-5.40); Sodium 138 mmol/L (136-145); White Blood Cell (WBC) Count 10.6 thou/uL (4.8-10.8)
[2017-11-15] MEDS ORDERED: Vancomycin HCl 750 MG in Sodium Chloride 0.9% 250 ML 250 ML IVPB SCH (09:00)
[2017-11-15] MEDS ORDERED: Prevnar 13-Val Conj/PF 0.5 ML SYRINGE IM ONE (09:00)
[2017-11-15] MEDS: Famotidine/PF 20 mg/2ml Vial SLOW IVP SCH (10:42)
[2017-11-15] MEDS: Enoxaparin Sodium 40 MG/0.4 ML SYRINGE SC SCH (10:42)
--- NOTE | 2017-11-15 17:28 | HP ---
HISTORY OF PRESENT ILLNESS: Ms. Kirsten Clancy is an 86-year-old female, diabetic, hypertensive, de mentia. She has been cared for at home where they live in [place] by her daughter. The patient was seen in outpatient wound care, [facility]. She presented to this hospital for admission yesterday for deteriorating feet. Dr. Cain as her primary care physician. The referring center has asked about arterial enhancement procedures for her stenting (noninvasive). The patient was sent by the [facility], [facility] in [place] to [place] where they had a discussion with leidy cheney vascular surgeon, who told them that revascularization was probably not an option as this would no t help with her dementia. The patient was able to transfer in months past, but recently because of d eteriorating arteriosclerotic gangrenous change in her feet. The patient has been unable to transfer and has been more dependent on her daughter. She has been continent in the past but in the hospital , diapers were in place. I have been asked to see, she has been admitted by Family Practice. There is no history of tobacco abuse. Hemoglobin A1c is not ordered. Accu-Cheks have been in good control and daughter states they have been at home also in the 80s to low 100s. ALLERGIES: TRAMADOL. TOBACCO: Never. ALCOHOL: None. MEDICATIONS AT HOME: Calcium daily, aspirin 81 mg a day, ascorbic acid 500 mg at bedtime, amitriptyl ine 25 at bedtime, Tylenol Extra Strength b.i.d., paroxetine B6 daily, metformin 500 mg q.a.m., multi vitamins daily, metoprolol one 12.5 b.i.d., Namenda 10 mg b.i.d., losartan potassium 50 mg at bedtime , lactobacillus daily, glucosamine daily, ferrous sulfate daily, Aricept 10 mg at bedtime, and vitami n B12. PAST SURGICAL HISTORY: Hysterectomy, unknown whether oophorectomy was performed, knee surgery. PAST MEDICAL HISTORY: Diabetes mellitus, hypertension, PAD, mild chronic kidney disease. In the hospital, she is also receiving Zosyn and vancomycin. REVIEW OF SYSTEMS: Not possible. FAMILY HISTORY: Not obtained from the patient, noncommunicative in her present state. PHYSICAL EXAMINATION: VITAL SIGNS: 5 feet 7, 139 pounds, 21 BMI, 99.4, 100, 16, and 139/62. HEENT: Unremarkable. Sclerae nonicteric. SKIN: Nonjaundiced. No lymphadenopathy. NECK: (03:08) groins. LUNGS: Clear to auscultation. CARDIAC: Regular rate and rhythm without murmur or gallop. ABDOMEN: Soft, nondistended, nontender. EXTREMITIES: Palpable femoral pulses bilaterally, palpable popliteal pulse, left nonpalpable pedal p ulses, although I can faintly Doppler a left posterior tibial pulse, monophasic, other pulses nonpalp able, nondopplerable. The patient has gangrenous changes of her feet, worse on the left foot than th e right. The gangrenous changes on the left foot extends plantar proximal. The patient has gangreno us changes left foot great toe, fourth, and fifth toes and right foot great toe, fourth toe and first and second toe. The third toe was also affected, it is foul smelling. LABORATORY DATA: White count 10, hemoglobin 7.5. Sodium 138, potassium 4.6, BUN 35, creatinine 1.03 (1.21 on admission), glucose 126-128. Last hemoglobin A1c was 6.6 on 07/27/2017. ASSESSMENT AND PLAN: 1. Severe peripheral artery disease. I have had more than 45 minutes discussion with the patient's daughter who is her caregiver. I have discussed DNR status, hospice care. I have discussed surgical options, cardiovascular consultation, angiograms, consider WICKER WORKER, plus or minus stenting. With her se milady dementia, this was probably not improve her quality of life. I have discussed the hospice care with palliative care and hospice care at home and we will order hospice consultation, discussed with family options. I have discussed bilateral amputations, considering that if this is undertaken, she would need bilateral below the knee amputations and blood transfusions due to her chronic anemia. I have discussed with the daughter that none of these measures will improve her quality of life and the patient will suffer progressive decline in performance. Currently, the daughter I think is leaning towards hospice care, which I agree with. 2. Severe anemia. 3. Peripheral artery disease severe with probable superficial femoral artery disease, right and belo w the knee small vessel tibial peroneal artery disease bilaterally with right foot wet gangrene and g angrenous process extending to the proximal foot plantar. Arteriosclerotic disease with gangrene. 4. Chronic kidney disease. 5. Hypertension. 6. Diabetes. Overall, prognosis is poor and I would suggest hospice care. I would suggest converti ng to oral antibiotics, Cipro, and Bactrim and oral Augmentin, Bactrim regimen. I would recommend di scharging home, washing her feet with soap and water and apply Band-Aid and gauze dressing between th e toes and covering for hygiene reasons or leave in open per daughter's discretion or alternating [facility] could not help. No other VAC would not help and other arterial enhancing noninvasive proced ures are not worthwhile and she is not a candidate for hyperbaric.
[2017-11-15] MEDS: Vancomycin HCl 1 GM in Premix Bag 1 BAG IVPB SCH (19:07)
[2017-11-16] MEDS: Piperacillin/Tazobactam 2.25 GM in Sodium Chloride 0.9% 100 ML IVPB SCH ×4 (01:59→20:43)
[2017-11-16 04:30] LABS: #Basophils 0.1 thou/uL (0.0-0.2); #Eosinphils 0.1 thou/uL (0.0-0.7); #Lymphocytes 2.4 thou/uL (1.20-3.40); #Neutrophils 6.8 thou/uL (1.40-6.50); %Basophils 0.6 % (0.0-1.0); %Eosinophils 1.3 % (0.0-10.0); %Lymphocytes 22.9 % (21.0-51.0); %Neutrophils 65.2 % (42.0-75.0); Hemoglobin 6.9 g/dL (12.0-16.0); Mean Corpuscular Hemoglobin 30.1 pg (27.0-31.0); Mean Corpuscular Volume 91.2 fL (78.0-98.0); Mean Platelet Volume 8.9 fL (7.4-10.4); Platelet Count 238 thou/uL (130-400); RBC Distribution Width 22.7 % (11.5-14.5); White Blood Cell (WBC) Count 10.4 thou/uL (4.8-10.8)
[2017-11-16] MEDS: Sodium Chloride 0.9% 1,000 ML IV SCH ×2 (04:37→15:47)
[2017-11-16 04:50] LABS: Anion Gap 16 mmol/L (10-20); BUN (Urea Nitrogen) 26 mg/dL (9.8-20.1); Calc. Creatinine Clearance 35 mL/min (70-130); Calcium 8.5 mg/dL (7.8-10.44); Carbon Dioxide 21 mmol/L (23-31); Chloride 108 mmol/L (98-107); Estimated GFR-MDRD 46; Glucose 132 mg/dL (83-110); Potassium 4.5 mmol/L (3.5-5.1); Sodium 140 mmol/L (136-145)
--- NOTE | 2017-11-16 05:58 | PDOC.FM ---
- Subjective Subjective: Kirsten Clancy is seen at bedside this morning, resting comfortably in bed. No acute events overnight, denies any complaints. Daughter in room, states that she thinks the best option for her mother is to resume wound care at home and no proceed with surgery. Patient did have fever of 100.5 last night. She has been on IV vanc and zosyn for 2 days. Residents were not notified of elevated temperature. - Objective MAR Reviewed: Yes Vital Signs & Weight: Vital Signs (12 hours) Temp Pulse Resp BP Pulse Ox 11/16/17 05:08 99 11/15/17 23:10 98.4 F 11/15/17 20:00 100.5 F H 97 18 120/65 100 I&O: 11/14/17 11/15/17 11/16/17 06:59 06:59 06:59 Intake Total 609 Balance 609 Result Diagrams: 11/16/17 04:11 11/16/17 04:11 <Demetrio Selby - Last Filed: 11/16/17 08:18> - Objective Vital Signs & Weight: Vital Signs (12 hours) Temp Pulse Resp BP Pulse Ox 11/17/17 07:48 98.1 F 75 18 115/69 95 11/16/17 23:15 98.0 F 20 93 L 11/16/17 21:45 98.8 F I&O: 11/16/17 11/17/17 11/18/17 06:59 06:59 06:59 Intake Total 1314 2957 Balance 1314 2957 Result Diagrams: 11/17/17 04:44 11/16/17 04:11 <Emiliana Rodriguez - Last Filed: 11/17/17 08:51> Phys Exam - Physical Examination Constitutional: NAD HEENT: PERRLA, moist MMs, sclera anicteric Neck: no JVD, supple, full ROM Respiratory: no wheezing, no rales, no rhonchi, clear to auscultation bilateral Cardiovascular: RRR, no significant murmur Gastrointestinal: soft, non-tender, no distention Musculoskeletal: no edema, pulses present Neurological: non-focal, normal sensation Psychiatric: normal affect, A&O x 3 <Demetrio Selby - Last Filed: 11/16/17 08:18> Dx/Plan (1) Cellulitis of foot, right Code(s): L03.115 - CELLULITIS OF RIGHT LOWER LIMB Status: Acute (2) Anemia Code(s): D64.9 - ANEMIA, UNSPECIFIED Status: Chronic (3) Type 2 diabetes mellitus with hyperglycemia Code(s): E11.65 - TYPE 2 DIABETES MELLITUS WITH HYPERGLYCEMIA Status: Chronic QualifierTitle: Diabetes mellitus [facility] insulin use: without [facility] use Qualified Code(s): E11.65 - Type 2 diabetes mellitus with hyperglycemia (4) Alzheimer's dementia Code(s): G30.9 - ALZHEIMER'S DISEASE, UNSPECIFIED; F02.80 - DEMENTIA IN OTH DISEASES CLASSD ELSWHR W/O BEHAVRL DISTURB Status: Chronic QualifierTitle: Alzheimer's disease onset: unspecified onset Dementia behavioral disturbance: without behavioral disturbance Qualified Code(s): G30.9 - Alzheimer's disease, unspecified; F02.80 - Dementia in other diseases classified elsewhere without behavioral disturbance; F02.80 - Dementia in other diseases classified elsewhere without behavioral disturbance; F02.80 - Dementia in other diseases classified elsewhere without behavioral disturbance (5) Anemia of chronic disease Code(s): D63.8 - ANEMIA IN OTHER CHRONIC DISEASES CLASSIFIED ELSEWHERE Status : Chronic (6) HTN (hypertension) Code(s): I10 - ESSENTIAL (PRIMARY) HYPERTENSION Status: Chronic QualifierTitle: Hypertension type: essential hypertension Qualified Code( s): I10 - Essential (primary) hypertension (7) PVD (peripheral vascular disease) Code(s): I73.9 - PERIPHERAL VASCULAR DISEASE, UNSPECIFIED Status: Chronic - Plan Plan: 1) Cellulitis of rt foot: IV abx with vancomycin and zosyn -maintenence fluids -Dr. Lerner, general surgery, consulted. Appreciate recs -pending family decision regarding amputation vs conservative management -palliative care 2) HTN: home meds 3) DMII: home meds 4) PVD: advanced, daughter reports they have declined stent placement in past -cont home medications 5) advanced end stage alzheimers: -palliative care consult for goals of care and help with poa and advanced directives 6) code status: pts daughter wishes for mother to be full code, will place order for now pending palliative recs 7) PPX: pepcid and lovenox for gi and dvt ppx respectively 8) anemia of chronic disease: s/p 1Uprbcs, am cbc, trend. Discuss goals of care , palliative consulted <Demetrio Selby - Last Filed: 11/16/17 08:18> (1) Cellulitis of foot, right Code(s): L03.115 - CELLULITIS OF RIGHT LOWER LIMB Status: Acute (2) Ischemic ulcer of both feet Code(s): L97.519 - NON-PRS CHRONIC ULCER OTH PRT RIGHT FOOT W UNSP SEVERITY; L97.529 - NON-PRESSURE CHRONIC ULCER OTH PRT LEFT FOOT W UNSP SEVERITY Status : Acute Qualifiers: Non-pressure ulcer stage: limited to breakdown of skin Qualified Code(s): L97.511 - Non-pressure chronic ulcer of other part of right foot limited to breakdown of skin; L97.521 - Non-pressure chronic ulcer of other part of left foot limited to breakdown of skin; L97.521 - Non-pressure chronic ulcer of other part of left foot limited to breakdown of skin; L97.521 - Non-pressure chronic ulcer of other part of left foot limited to breakdown of skin; L97.521 - Non-pressure chronic ulcer of other part of left foot limited to breakdown of skin (3) Type 2 diabetes mellitus with hyperglycemia Code(s): E11.65 - TYPE 2 DIABETES MELLITUS WITH HYPERGLYCEMIA Status: Chronic Qualifiers: Diabetes mellitus termite exterminator insulin use: without termite exterminator use Qualified Code(s): E11.65 - Type 2 diabetes mellitus with hyperglycemia (4) Alzheimer's dementia Code(s): G30.9 - ALZHEIMER'S DISEASE, UNSPECIFIED; F02.80 - DEMENTIA IN OTH DISEASES CLASSD ELSWHR W/O BEHAVRL DISTURB Status: Chronic Qualifiers: Alzheimer's disease onset: unspecified onset Dementia behavioral disturbance: without behavioral disturbance Qualified Code(s): G30.9 - Alzheimer's disease, unspecified; F02.80 - Dementia in other diseases classified elsewhere without behavioral disturbance; F02.80 - Dementia in other diseases classified elsewhere without behavioral disturbance; F02.80 - Dementia in other diseases classified elsewhere without behavioral disturbance (5) Anemia of chronic disease Code(s): D63.8 - ANEMIA IN OTHER CHRONIC DISEASES CLASSIFIED ELSEWHERE Status : Chronic (6) HTN (hypertension) Code(s): I10 - ESSENTIAL (PRIMARY) HYPERTENSION Status: Chronic Qualifiers: Hypertension type: essential hypertension Qualified Code(s): I10 - Essential (primary) hypertension (7) PVD (peripheral vascular disease) Code(s): I73.9 - PERIPHERAL VASCULAR DISEASE, UNSPECIFIED Status: Chronic <Emiliana Rodriguez - Last Filed: 11/17/17 08:51> Attending Addendum - Attending Addendum Date/Time: 11/16/17 9503 I personally evaluated the patient and discussed the management with Dr. Webber and Dr. Selby I agree with the History, Examination, Assessment and Plan documented above with any addition or exceptions noted below. 86 yo female with end stage Alzheimer's disease admitted for gangrene. Needs surgical management. Family does not feel this is best option for patient due to risk. [place]. Will continue to treat with antibiotics and wound care. Hospice team has visited with family today. Question answered. Will give 1 unit pRBCs due to H&H. Likely d/c to home tomorrow. Blood cultures negative. ABrayMD <Emiliana Rodriguez - Last Filed: 11/17/17 08:51>
[2017-11-16] MEDS ORDERED: [UNRECOGNIZED DRUG - OTHER] PO SCH (09:00)
[2017-11-16] MEDS ORDERED: Non-Formulary Item 1 EACH (Multivitamin/Iron/Folic Acid [Centrum Adults Tablet] 1 EACH) PO SCH (09:00)
[2017-11-16] MEDS: metFORMIN 500 MG TAB PO SCH (09:22)
[2017-11-16] MEDS: Cyanocobalamin (Vitamin B-12) 1,000 MCG TAB PO SCH (09:22)
[2017-11-16] MEDS: Lactinex Tablet PO SCH ×2 (09:22→16:47)
[2017-11-16] MEDS: Ferrous Sulfate 325 MG TAB PO SCH (09:22)
[2017-11-16] MEDS: Calcium Carbonate + Vit D 1 TAB PO SCH (09:22)
[2017-11-16] MEDS: pyridOXINE 50 MG (B6) TAB PO SCH (09:23)
[2017-11-16] MEDS: Multivitamin W/ Minerals 1 TAB PO SCH (09:23)
[2017-11-16] MEDS: Folic Acid 1 MG TAB PO SCH (09:23)
[2017-11-16] MEDS: Metoprolol Tartrate 25 MG TAB PO SCH ×2 (09:23→20:49)
[2017-11-16] MEDS: Famotidine/PF 20 mg/2ml Vial SLOW IVP SCH (09:24)
[2017-11-16] MEDS: Enoxaparin Sodium 40 MG/0.4 ML SYRINGE SC SCH (09:24)
[2017-11-16 18:11] LABS: Vancomycin, Trough 13.2 ug/mL
[2017-11-16] MEDS: Vancomycin HCl 1 GM in Premix Bag 1 BAG IVPB SCH (19:23)
[2017-11-16] MEDS ORDERED: Amitriptyline HCl 25 MG TAB PO SCH (21:00)
[2017-11-16] MEDS ORDERED: Vancomycin HCl 1 GM in Premix Bag 1 BAG IVPB SCH (21:00)
[2017-11-16] MEDS ORDERED: Ascorbic Acid 500 mg Chewable Tablet PO SCH (21:00)
[2017-11-16] MEDS ORDERED: Losartan 25 MG TAB PO SCH (21:00)
[2017-11-16] MEDS ORDERED: Donepezil HCl 10 MG TAB PO SCH (21:00)
[2017-11-16 23:25] LABS: Hemoglobin 7.7 g/dL (12.0-16.0); Platelet Count 226 thou/uL (130-400)
[2017-11-17] MEDS: Piperacillin/Tazobactam 2.25 GM in Sodium Chloride 0.9% 100 ML IVPB SCH ×3 (02:01→15:24)
[2017-11-17] MEDS: Sodium Chloride 0.9% 1,000 ML IV SCH (02:01)
[2017-11-17 05:18] LABS: #Basophils 0.1 thou/uL (0.0-0.2); #Eosinphils 0.2 thou/uL (0.0-0.7); #Lymphocytes 2.2 thou/uL (1.20-3.40); #Monocytes 0.7 thou/uL (0.11-0.59); #Neutrophils 5.6 thou/uL (1.40-6.50); %Basophils 0.6 % (0.0-1.0); %Eosinophils 2.2 % (0.0-10.0); %Lymphocytes 25.3 % (21.0-51.0); %Monocytes 8.5 % (0.0-10.0); %Neutrophils 63.5 % (42.0-75.0); Hemoglobin 8.2 g/dL (12.0-16.0); Mean Corpuscular HGB CONC 32.7 g/dL (32.0-36.0); Mean Corpuscular Hemoglobin 30.4 pg (27.0-31.0); Mean Platelet Volume 8.7 fL (7.4-10.4); Platelet Count 234 thou/uL (130-400); RBC Distribution Width 20.9 % (11.5-14.5); Red Blood Cell (RBC) Count 2.71 mill/uL (4.20-5.40); White Blood Cell (WBC) Count 8.8 thou/uL (4.8-10.8)
--- NOTE | 2017-11-17 06:23 | PDOC.FM ---
- Subjective Subjective: Kirsten Clancy seen at bedside this morning. She has no complaints this morning, she had no acute events overnight. Pt and daughter were planning to be discharged yesterday afternoon but the daughter did not feel it was safe to travel out to the [place] in the bad weather. Patient also had 2nd blood transfusion of 1 U pRBC yesterday. Patient to be discharged this morning, she has been set up with -wound care. - Objective MAR Reviewed: Yes Vital Signs & Weight: Vital Signs (12 hours) Temp Pulse Pulse Resp BP BP Pulse Ox 11/16/17 23:15 98.0 F 20 93 L 11/16/17 21:45 98.8 F 11/16/17 20:43 100.2 F H 94 94 18 171/84 H 171/84 H 95 11/16/17 20:00 98.8 F 94 22 H 111/54 L 96 11/16/17 19:00 98.8 F 94 22 H 96 I&O: 11/15/17 11/16/17 11/17/17 06:59 06:59 06:59 Intake Total 609 1314 2957 Balance 609 1314 2957 Result Diagrams: 11/17/17 04:44 11/16/17 04:11 <Demetrio Selby - Last Filed: 11/17/17 08:46> - Objective Vital Signs & Weight: Vital Signs (12 hours) Temp Pulse Resp BP Pulse Ox 11/17/17 12:42 99.3 F 75 16 163/80 H 95 11/17/17 11:51 99.3 F 75 16 95 11/17/17 08:00 98.1 F 75 18 95 11/17/17 07:48 98.1 F 75 18 115/69 95 I&O: 11/16/17 11/17/17 11/18/17 06:59 06:59 06:59 Intake Total 1314 2957 Balance 1314 2957 Result Diagrams: 11/17/17 04:44 11/16/17 04:11 <Emiliana Rodriguez - Last Filed: 11/17/17 16:47> Phys Exam - Physical Examination Constitutional: NAD HEENT: moist MMs, sclera anicteric Neck: no JVD, supple, full ROM Respiratory: no wheezing, no rales, no rhonchi, clear to auscultation bilateral Cardiovascular: RRR, no significant murmur Gastrointestinal: soft, non-tender, no distention Musculoskeletal: no edema, pulses present Neurological: non-focal, normal sensation, moves all 4 limbs Deviation from normal: A&O X0- baseline <BalDemetrio zaidi - Last Filed: 11/17/17 08:46> Dx/Plan (1) Cellulitis of foot, right Code(s): L03.115 - CELLULITIS OF RIGHT LOWER LIMB Status: Acute (2) Anemia Code(s): D64.9 - ANEMIA, UNSPECIFIED Status: Chronic (3) Type 2 diabetes mellitus with hyperglycemia Code(s): E11.65 - TYPE 2 DIABETES MELLITUS WITH HYPERGLYCEMIA Status: Chronic QualifierTitle: (4) Alzheimer's dementia Code(s): G30.9 - ALZHEIMER'S DISEASE, UNSPECIFIED; F02.80 - DEMENTIA IN OTH DISEASES CLASSD ELSWHR W/O BEHAVRL DISTURB Status: Chronic QualifierTitle: (5) Anemia of chronic disease Code(s): D63.8 - ANEMIA IN OTHER CHRONIC DISEASES CLASSIFIED ELSEWHERE Status : Chronic (6) HTN (hypertension) Code(s): I10 - ESSENTIAL (PRIMARY) HYPERTENSION Status: Chronic QualifierTitle: (7) PVD (peripheral vascular disease) Code(s): I73.9 - PERIPHERAL VASCULAR DISEASE, UNSPECIFIED Status: Chronic - Plan Plan: 1) Cellulitis of rt foot: - IV abx with vancomycin and zosyn for 2 days, now transitioned to PO abx - Dr. Lerner, general surgery, consulted. Appreciate recs - family has decided that conservative management is in patient's best interest - d/c home today with HH-wound care 2) HTN: - home meds 3) DMII: - home meds 4) PVD: - advanced, daughter reports they have declined stent placement in past - cont home medications 5) advanced end stage alzheimers: - palliative care consult for goals of care and help with poa and advanced directives 6) anemia of chronic disease: - s/p 2 U pRBCs, Hg is 8.2 today <Demetrio Selby - Last Filed: 11/17/17 08:46> (1) Cellulitis of foot, right Code(s): L03.115 - CELLULITIS OF RIGHT LOWER LIMB Status: Acute (2) Ischemic ulcer of both feet Code(s): L97.519 - NON-PRS CHRONIC ULCER OTH PRT RIGHT FOOT W UNSP SEVERITY; L97.529 - NON-PRESSURE CHRONIC ULCER OTH PRT LEFT FOOT W UNSP SEVERITY Status : Acute Qualifiers: Non-pressure ulcer stage: limited to breakdown of skin Qualified Code(s): L97.511 - Non-pressure chronic ulcer of other part of right foot limited to breakdown of skin; L97.521 - Non-pressure chronic ulcer of other part of left foot limited to breakdown of skin; L97.521 - Non-pressure chronic ulcer of other part of left foot limited to breakdown of skin; L97.521 - Non-pressure chronic ulcer of other part of left foot limited to breakdown of skin; L97.521 - Non-pressure chronic ulcer of other part of left foot limited to breakdown of skin (3) Type 2 diabetes mellitus with hyperglycemia Code(s): E11.65 - TYPE 2 DIABETES MELLITUS WITH HYPERGLYCEMIA Status: Chronic Qualifiers: Diabetes mellitus care home insulin use: without care home use Qualified Code(s): E11.65 - Type 2 diabetes mellitus with hyperglycemia (4) Alzheimer's dementia Code(s): G30.9 - ALZHEIMER'S DISEASE, UNSPECIFIED; F02.80 - DEMENTIA IN OT DISEASES CLASSD ELSWHR W/O BEHAVRL DISTURB Status: Chronic Qualifiers: Alzheimer's disease onset: unspecified onset Dementia behavioral disturbance: without behavioral disturbance Qualified Code(s): G30.9 - Alzheimer's disease, unspecified; F02.80 - Dementia in other diseases classified elsewhere without behavioral disturbance; F02.80 - Dementia in other diseases classified elsewhere without behavioral disturbance; F02.80 - Dementia in other diseases classified elsewhere without behavioral disturbance (5) Anemia of chronic disease Code(s): D63.8 - ANEMIA IN OTHER CHRONIC DISEASES CLASSIFIED ELSEWHERE Status : Chronic (6) HTN (hypertension) Code(s): I10 - ESSENTIAL (PRIMARY) HYPERTENSION Status: Chronic Qualifiers: Hypertension type: essential hypertension Qualified Code(s): I10 - Essential (primary) hypertension (7) PVD (peripheral vascular disease) Code(s): I73.9 - PERIPHERAL VASCULAR DISEASE, UNSPECIFIED Status: Chronic <Emiliana Rodriguez - Last Filed: 11/17/17 16:47> Attending Addendum - Attending Addendum Date/Time: 11/17/17 8766 I personally evaluated the patient and discussed the management with Dr. Webber and Dr. Selby I agree with the History, Examination, Assessment and Plan documented above with any addition or exceptions noted below. Stable for d/c today. Family will not be pursuing surgical treatment due to risk. Discussed with daughter, will likely transition to hospice at home. Wound care to follow as outpatient. Continue antibx for now. Will up date PCP. Maciel <Emiliana Rodriguez - Last Filed: 11/17/17 16:47>
[2017-11-17] MEDS: Folic Acid 1 MG TAB PO SCH (08:46)
[2017-11-17] MEDS: Ferrous Sulfate 325 MG TAB PO SCH (08:47)
[2017-11-17] MEDS: Calcium Carbonate + Vit D 1 TAB PO SCH (08:47)
[2017-11-17] MEDS: Lactinex Tablet PO SCH (08:47)
[2017-11-17] MEDS: Enoxaparin Sodium 40 MG/0.4 ML SYRINGE SC SCH (08:47)
[2017-11-17] MEDS: Multivitamin W/ Minerals 1 TAB PO SCH (08:47)
[2017-11-17] MEDS: Metoprolol Tartrate 25 MG TAB PO SCH (08:47)
[2017-11-17] MEDS: metFORMIN 500 MG TAB PO SCH (08:47)
[2017-11-17] MEDS: Cyanocobalamin (Vitamin B-12) 1,000 MCG TAB PO SCH (08:53)
[2017-11-17] MEDS: pyridOXINE 50 MG (B6) TAB PO SCH (09:08)
[2017-11-17] MEDS: Famotidine/PF 20 mg/2ml Vial SLOW IVP SCH (09:08)
--- NOTE | 2017-11-17 09:19 | PRG ---
DATE OF SERVICE: 11/17/2017 Kirsten Clancy is doing well today. Her wounds look stable. She has dry gangrene. She has a decub itus medial malleolar ulcer, right foot. She has the beginnings of knee contractures. She is not a reliable and cooperative in preventing pressure sores on her heels or malleolar areas. I have discus sed with the daughter, their decision is nonoperative which I agree with. They have talked to pallia tive care and talk to hospice, but not ready to engage hospice at home. They have not decided on a D NR status. I have talked to the family about that. Encouraged them to consider this and described t he consequences. They have questions about periodic transfusions. I have told them in my opinion, t hey should not check labs and consider DNR. Further investigation of her anemia is not warranted as due to her poor conditioning as surgical intervention would not be indicated or possible should anyth ing be found. At this point I will see her as needed. I have talked to the family on initial consul tation about washing her feet with soap and water daily and drying and painting with Betadine and reji cing gauze between the toes. Also, I have talked to them about taking protective measures for the fe et to prevent decubiti. The family has been told by their outpatient wound care in [place] t hat they should not get the feet wet. At this point, I will see her as needed.
[2017-11-17 11:51] VITALS: TEMP 99.3
--- NOTE | 2017-11-17 12:17 | DIS-2 ---
DATE OF ADMISSION: 11/14/2017 DATE OF DISCHARGE: 11/17/2018 RESIDENT: Demetrio Selby M.D. ADMITTING ATTENDING: Dr. Emiliana Rodriguez. DISCHARGE ATTENDING: Dr. Emiliana Rodriguez CONSULTATIONS: 1. General Surgery, Dr. Lerner on 11/14/2017. 2. Hospice Agency on 11/15/2017. 3. Palliative care on 11/15/2017. PROCEDURES: 1. Foot x-ray on 11/14/2017. Impression; subcutaneous emphysema. There is evidence for gangrene. No chayito bone destruction identified and atherosclerosis. 2. Blood culture from 11/14/2017, final no growth at 48 hours. PRIMARY DIAGNOSIS: Cellulitis of the right foot. SECONDARY DIAGNOSES: 1. Severe peripheral vascular disease. 2. Type 2 diabetes with hyperglycemia. 3. Ischemic ulcers of both feet. 4. Atrial fibrillation. 5. Alzheimer dementia. 6. Hypertension. 7. Chronic normocytic anemia. DISCHARGE MEDICATIONS: Resume all home medications includin. Amitriptyline 25 mg p.o. at bedtime. 2. Aricept 10 mg p.o. at bedtime. 3. Memantine HCL 10 mg p.o. b.i.d. 4. Pyridoxine 100 mg p.o. daily. 5. Ferrous sulfate 47.5 mg p.o. daily. 6. Multivitamin 2 tablets p.o. daily. 7. Calcium and vitamin D supplement 1 tablet p.o. daily. 8. Centrum adults 1 tablet p.o. daily. 9. Vitamin C tablet 500 mg p.o. at bedtime. 10. Acetaminophen 500 mg p.o. b.i.d. 11. Metformin HCL 500 mg p.o. q.a.m. with meals. 12. Osteo Bi-Flex triple strength 1 tab p.o. b.i.d. 13. Aspirin 81 mg p.o. daily. 14. Folic acid 0.8 mg p.o. daily. 15. Vitamin B12 2500 mcg p.o. daily. 16. Lactobacillus acidophilus 1 capsule p.o. b.i.d. with meals. 17. Metoprolol tartrate 12.5 mg p.o. b.i.d. 18. Losartan potassium 50 mg p.o. at bedtime. NEW HOME MEDICATIONS: 1. Clindamycin HCL 300 mg p.o. q.6 hours for 10 days. 2. Bactrim double strength 1 tab p.o. b.i.d. for 10 days. HISTORY OF PRESENT ILLNESS/HOSPITAL COURSE: Kirsten Clancy is an 86-year-old female with past medical history of advanced Alzheimer disease who is A&O x0 at baseline. She has also got significant peripheral vascular disease. She [facility] for concern for cellulitis from foot wounds. She has been seeing outpatient wound care for debridement and treatment of dry gangrenous toes and was seen today and referred for concern of red streaking extending up the dorsal aspect of the right foot. The patient is nonverbal throughout the encounter. History mostly obtained through the patient 's daughter. The patient was started on vancomycin in the ED. The patient's initial labs were white blood cell count 10.6, hemoglobin 7.5, hematocrit 22.8, platelets 262, sodium 134, potassium 4.6, chloride 100, carbon dioxide 21, BUN 46, creatinine 1.21. The patient was admitted for cellulitis of the right foot. IV vancomycin and Zosyn were started. The patient was given maintenance fluids because she had a mild DASHAWN. General Surgery was consulted to evaluate her foot wounds. General Surgery saw the patient, Dr. Lerner saw the patient on 11/15/2017 and had a discussion with patient's daughter about his recommendations. He discussed bilateral amputations with the patient and the patient's daughter, but also stated that none of the measures will likely improve her quality of life as the patient has poor prognosis with her advanced Alzheimer dementia and inability to perform her ADLs. With fluids the patient's acute kidney injury resolved within the first 24 hours of admission, the IV vancomycin and Zosyn were continued throughout the entirety of her admission from 11/14/2017 to 2017. Hospice and palliative care were both consulted and saw the patient and discussed the case with the patient's daughter in order to decide on a resuscitation status as well as goals of care. The patient's family decided that they would not pursue the surgical route, but rather opted for conservative management with home health and wound care. They declined the hospice option at this time, but are open to it in the future. The patient already has [facility] and wound care was set up during this admission through [facility] with the help of case management. The patient was cleared for discharge on 11/17/2017. During her admission, she required 2 blood transfusions. She has chronic normocytic anemia. Her hemoglobin trended from 6.4 to 7.5 after first transfusion and then dropped back down to 6.8. The patient received a second transfusion. On day of discharge, hemoglobin was 8.2. Patient was discharged on 11/17/2017. DISPOSITION: The patient's prognosis is guarded as she has advanced Alzheimer dementia and is no longer able to manage her activities of daily living. The patient does have a daughter who lives with her and cares for her daily. It is likely that the patient will eventually need to be set up with hospice. She will already be under the care of [facility]- Wound Care. Dr. Shea, who is the patient's primary care physician, was notified of the patient's admission. DISCHARGE INSTRUCTIONS: 1. Location: Home. 2. Diet: Heart healthy. 3. Activity: As tolerated. 4. Follow up with Dr. Shea within 1 week and with [facility] for wound care management. ASHLEY
[2017-11-17 12:43] VITALS: BP 163/80
[2017-11-17] MEDS ORDERED: Vancomycin HCl 1 GM in Premix Bag 1 BAG IVPB SCH (18:00)
== END 2017-11-17 17:41 | disposition home health service (06) | DRG 300 ==
LOC: ERS 16:00 → T4-B 19:14
PROVIDERS: ADMIT Family Medicine; ATTEND Family Medicine
PROC: 30233N1 Transfusion of Nonautologous Red Blood Cells into Peripheral Vein, Percutaneous Approach (ICD-10-PCS; principal; 2017-11-14)
DX: E11.52 Type 2 diabetes mellitus with diabetic peripheral angiopathy with gangrene (principal); L03.115 Cellulitis of right lower limb; N17.9 Acute kidney failure, unspecified; I70.263 Atherosclerosis of native arteries of extremities with gangrene, bilateral legs; I12.9 Hypertensive chronic kidney disease with stage 1 through stage 4 chronic kidney disease, or unspecified chronic kidney disease; E11.22 Type 2 diabetes mellitus with diabetic chronic kidney disease; N18.3 Chronic kidney disease, stage 3 (moderate); E11.621 Type 2 diabetes mellitus with foot ulcer; L89.519 Pressure ulcer of right ankle, unspecified stage; M24.562 Contracture, left knee; M24.561 Contracture, right knee; I48.91 Unspecified atrial fibrillation; D64.9 Anemia, unspecified; D63.1 Anemia in chronic kidney disease; L97.521 Non-pressure chronic ulcer of other part of left foot limited to breakdown of skin; E11.65 Type 2 diabetes mellitus with hyperglycemia; L97.511 Non-pressure chronic ulcer of other part of right foot limited to breakdown of skin; G30.9 Alzheimer's disease, unspecified; F02.80 Dementia in other diseases classified elsewhere, unspecified severity, without behavioral disturbance, psychotic disturbance, mood disturbance, and anxiety; Z88.5 Allergy status to narcotic agent; Z79.899 Other long term (current) drug therapy; Z79.82 Long term (current) use of aspirin; Z79.84 Long term (current) use of oral hypoglycemic drugs; Z85.828 Personal history of other malignant neoplasm of skin; Z87.39 Personal history of other diseases of the musculoskeletal system and connective tissue; Z90.710 Acquired absence of both cervix and uterus
CPT/HCPCS: 36415; 36416; 36430; 80048; 80053; 80202; 81001; 82947; 83605; 85025; 85652; 86850; 86900; 86901; 87040; 87086; 96365; J1650; J2543; J3370; J7050; P9016; S0028